=== PATIENT | male | born 1960 | race Caucasian/White ===

== ENCOUNTER 2017-11-25 23:12 | Inpatient (IN) | payer MEDICARE ==
[2017-11-26] MEDS ORDERED: Ketorolac Tromethamine 30 MG/ML VIAL ONE (02:15)
[2017-11-26] MEDS ORDERED: Ondansetron HCl/PF 4 MG/2 ML Vial IVP PRN (03:12)
[2017-11-26] MEDS ORDERED: Acetaminophen 650 MG Suppository PR PRN (03:12)
[2017-11-26 03:47] LABS: #Basophils 0.1 thou/uL (0.0-0.2); #Eosinphils 0.4 thou/uL (0.0-0.7); #Lymphocytes 3.4 thou/uL (1.20-3.40); #Monocytes 0.6 thou/uL (0.11-0.59); #Neutrophils 4.8 thou/uL (1.40-6.50); %Basophils 1.1 % (0.0-1.0); %Eosinophils 4.3 % (0.0-10.0); %Lymphocytes 36.8 % (21.0-51.0); %Neutrophils 51.8 % (42.0-75.0); Hemoglobin 12.3 g/dL (14.0-18.0); Mean Corpuscular Volume 96.7 fl (80.0-94.0); Mean Platelet Volume 9.1 fL (7.4-10.4); Platelet Count 157 thou/uL (130-400); Red Blood Cell (RBC) Count 4.12 mill/uL (4.70-6.10); White Blood Cell (WBC) Count 9.3 thou/uL (4.8-10.8)
[2017-11-26 04:06] LABS: Anion Gap 15 mmol/L (10-20); BUN (Urea Nitrogen) 17 mg/dL (8.4-25.7); Calc. Creatinine Clearance 0 mL/min (70-130); Calcium 8.9 mg/dL (7.8-10.44); Carbon Dioxide 19 mmol/L (22-29); Cardiac Risk 3.8 (Less than 4.5); Chloride 109 mmol/L (98-107); Cholesterol 134 mg/dl (< 200 Desired); Estimated GFR-MDRD Greater than 90; Glucose 90 mg/dL (70-105); HDL Cholesterol 35 mg/dL (>60 Neg Risk); LDL Cholesterol, Calculated 72 mg/dL; Magnesium 2.1 mg/dL (1.6-2.6); Sodium 139 mmol/L (136-145); Triglycerides 134 mg/dL (Less than 150)
--- NOTE | 2017-11-26 06:23 | HP ---
DATE OF ADMISSION: 11/26/2017 TIME OF SERVICE: 0200 hours. PRIMARY CARE PHYSICIAN: Souleymane Hines MD CHIEF COMPLAINT: Left-sided weakness. HISTORY OF PRESENT ILLNESS: Mr. Sherwood is a 57-year-old white male with known history of cerebral v ascular disease, status post large stroke in 2014, coronary artery disease, hypertension, hyperlipide lupis, anxiety/depression. The patient was transferred to our facility from the [facility] for stroke workup. The patient presented there after a 24 to 36 hour history of left-sided paresis. He states he could not move his left arm or leg, but now is able to move his left fingers. He has a chronic right-sided deficit after his previous stroke. He initially had right-sided weaknes s, but developed tremors and clonus to the right upper and lower extremities. Those have been relati vely stable. The patient also notes today that he cannot see out of the right half of his visual field of either o ne of his eyes and also has not been speaking normal since this morning. Nursing reports they did a bedside swallow evaluations while still in the emergency department, which he failed and I currently keep him n.p.o. The patient denies any fevers or chills, no cough, no lindsay st pain. No other areas of numbness or tingling or dysfunction. PAST MEDICAL HISTORY: 1. Coronary artery disease. 2. Hypertension. 3. Hyperlipidemia. 4. Cerebrovascular, status post stroke in 2014. 5. Anxiety/depression. PAST SURGICAL HISTORY: Includes: 1. Coronary artery bypass grafting. 2. PTCA with stent placement. 3. Right nephrectomy. HOME MEDICATIONS: 1. Lovastatin 20 mg p.o. at bedtime. 2. Lisinopril 20 mg p.o. daily. 3. Pepcid 20 mg daily. 4. Plavix 75 mg daily. 5. Escitalopram 20 mg daily, though he thinks he needs more. 6. Aspirin 325 mg daily. 7. Amlodipine 10 mg daily. ALLERGIES: ALEVE, HYDROCODONE and BACTRIM. FAMILY HISTORY: Negative for clotting or bleeding disorder, no immune dysfunction. SOCIAL HISTORY: Significant for past tobacco, but none currently. Cardiac is negative, habit x3. T he patient says his left about 6 months ago. He does have a son that lives nearby. REVIEW OF SYSTEMS: Ten point review of systems was performed and is negative for all systems except as stated as per HPI. PHYSICAL EXAMINATION: VITAL SIGNS: Temperature is 98.0, pulse 57, blood pressure 140/88, respiratory rate 20, satting 99% room air. GENERAL: He is awake. He is alert. He is oriented x3. He is a cachectic-looking white male who is disheveled looking. He looks like he is in no acute distress. HEENT: He is normocephalic, atraumatic. Pupils are equal, round, react to light bilaterally, mucous membranes are moist. He has uvula deviation looks to the left. There is some slight left-sided fac ial droop. His speech is garbled. He is speaking coherently, but the words are somewhat slurred. NECK: Supple. There is no lymphadenopathy, no JVD, no thyromegaly. He has normal carotid upstrokes . I do not appreciate bruit. LUNGS: Clear. Good air movement bilaterally. There is symmetrical chest excursion. There are no w heezes, no rales, no rhonchi. No prolonged expiratory phase. CARDIOVASCULAR: He has a normal S1, S2, no S3, S4. He is regular and with a normal rate. He has no audible murmurs. ABDOMEN: Soft, nontender, nondistended, no mass, no organomegaly. Normoactive bowel sounds. There is no rebound, rigidity, or guarding. EXTREMITIES: Show no cyanosis, no clubbing. He has a trace pedal edema. SKIN: Warm, moist warm perfusing no rashes or lesions. NEUROLOGIC: Cranial nerves II-XII grossly intact, though on second look, he does have a slight left- sided facial droop. He has uvula deviation in the right. He is dysarthric. The remainder of his cr anial nerves appears to be intact. He has no nuchal rigidity or neck muscle weakness. His left uppe r extremity is weak approximately 1/5 strength. His fingers are able to provide manager r d and opening at 2 to 3/5 strength. He is hyperflexing in both brachioradialis and triceps tendons and then biceps te ndon. He is basically hemiparetic to the left lower extremity. He cannot dorsiflex or plantarflex his toes. He has decreased sensation and does say numb and does not withdraw from pain. His patella r reflexes hyperreflexic. Right lower extremity shows a 4-5 beats of clonus with ankle jerk. He is able to lift his leg but gets almost nael hemiballismic with it and similarly for his right upper ext remity. He has a pretty profound 3 to 5 Hertz resting tremor to the right upper extremity. MUSCULOSKELETAL: Normal to inspection. Joints appear uninflamed. There is no palpable joint effusi ons. LABORATORY DATA: Sodium 140, potassium 4.0, chloride 109, bicarb 20, BUN 22, creatinine 1.03, glucos e 97, calcium 9.4. Liver function completely normal. CBC showed white count 10.4, hemoglobin 13.0, hematocrit 38.0, platelet count is 240,000. Biomarkers showed a CK-MB of 1.3, troponin I undetectabl e less than 0.010. Urinalysis is negative. Urine drug screen is positive for THC and benzos. The p atient did admit to using. INR 0.99 and TSH is 3.02. Chest x-ray, CT scan showed no infarct, no mas s shift and no bleeds. Chest x-ray showed no acute cardiopulmonary disease. ASSESSMENT AND PLAN: 1. Subacute stroke, ischemic. The patient has a right homonymous hemianopsia. He has a profound le ft-sided weakness. It is certainly new. He has chronic old right-sided findings. I suspect he had a left hemispheric stroke. We will get an MRI/MRA. We will use aspirin 300 mg rectally daily until speech therapy and sensory evaluate him. PT, OT and speech therapy consult has been ordered. We sarah l get fasting lipid profile in the morning. The patient at home was already on maximal therapy with Plavix, aspirin, lovastatin, though there is some room to increase that. We will ask Dr. Sedrick lowry h Neurology was special education curriculum specialist to see him today. 2. Coronary artery disease, no symptoms at present. 3. Hypertension. The patient is on lisinopril normally. He is also on amlodipine. We will use hyd ralazine 10 mg q.3 p.r.n. for systolic greater than 180. 4. Hyperlipidemia on lovastatin. Fasting lipid profile is pending. 5. History of cerebrovascular disease as above with anxiety/depression on citalopram, though the pat ient needs it any more. May increase once he is cleared to swallow.
[2017-11-26] MEDS ORDERED: Aspirin 300 MG Suppository PR SCH (09:00)
[2017-11-26] MEDS ORDERED: Enoxaparin Sodium 40 MG/0.4 ML SYRINGE ONE (09:20)
[2017-11-26] MEDS ORDERED: Famotidine/PF 20 mg/2ml Vial ONE (09:21)
--- NOTE | 2017-11-26 09:30 | MRI ---
BRAIN MRI WITHOUT CONTRAST: History: Right CVA. Left sided weakness. Right sided symptoms. Difficulty speaking. Comparison: 05-31-17 Technique: Brain MRI is performed without intravenous gadolinium administration. Multisequential, mul tiplanar images were performed. FINDINGS: No hemorrhage on the axial gradient echo sequence. No parenchymal mass effect or midline shift. There is stable malacic change in the left occipital lob e and right cerebellar hemisphere. Associated gliosis. Remainder of the cerebrum demonstrates preserv ation of cortical vaughn white matter differentiation. Single malacic change in the right midbrain. T2 and FLAIR white matter hyperintensity due to chronic small vessel ischemic change is noted. Central arterial flow voids are maintained. Mucosal disease of the sinuses is noted. Calvarium has normal marrow signal intensity. Midline brain parenchymal structures are unremarkable. IMPRESSION: 1. Absent restricted diffusion. No acute infarct. 2. Stable malacic and gliotic changes. POS: [facility]
--- NOTE | 2017-11-26 09:37 | MRI ---
NONCONTRAST ENHANCED ASA'CARSARMIUT OF ACEVES MRA: Date: 11/26/17 HISTORY: Left-sided weakness, hemoptysis. TECHNIQUE: Noncontrast enhanced MRA images obtained. FINDINGS: Old areas of stroke seen in the left occipital cortex, as well as in the right maico. The left vertebral artery is tiny and ends in the left posterior inferior cerebellar artery. The righ t vertebral artery is dominant. Normal flow is seen in the basilar artery. There is normal flow seen in the right and left posterior cerebral arteries. Flow is seen in the internal carotid artery with g ood flow seen in the JENA and MCA vessels. No evidence of aneurysms or vascular occlusion seen. IMPRESSION: Old left posterior cerebral artery stroke and right pontine strokes. No definite evidence of signific ant occlusive changes seen. The left vertebral artery ends in PICA and is tiny. POS: [facility]
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
[2017-11-26] MEDS: Enoxaparin Sodium 40 MG/0.4 ML SYRINGE SC SCH (16:28)
[2017-11-26] MEDS: Sodium Chloride 0.9% 1,000 ML IV SCH ×2 (17:25→17:26)
[2017-11-26] MEDS: Famotidine/PF 20 mg/2ml Vial SLOW IVP SCH ×2 (17:26→20:34)
[2017-11-26] MEDS: Lovastatin 20 MG TAB PO SCH (20:33)
[2017-11-26] MEDS: Clopidogrel Bisulfate 75 MG TAB PO SCH (20:33)
--- NOTE | 2017-11-26 20:41 | CON ---
NEUROLOGY CONSULTATION NOTE DATE OF CONSULTATION: 11/26/2017 CONSULTING PHYSICIAN: Hospitalist Service. IMPRESSION: 1. Psychosomatic weakness on the left. 2. Past history of a left occipital stroke and right cerebellar stroke. PLAN: The patient can be discharged at your discretion. HISTORY OF PRESENT ILLNESS: Mr. Sherwood is a 57-year-old man who reports that as of yesterday, he ab ruptly lost the use of his left arm and leg. His symptoms have persisted since yesterday. He report s a history of a prior stroke with a right homonomous field deficit and a tremor in the right hand. He reports he has been compliant with his aspirin, Plavix, and statin. He came into the emergency ro om today. He had an MRI of the brain done, which showed only chronic ischemic changes, but nothing a cute. MRA of the cerebral vessel was unremarkable. His lab work has been unremarkable as well. The patient does not complain of a headache, nausea, vomiting and difficulty speaking or swallowing. PAST MEDICAL HISTORY: CVA. ALLERGIES: SULFA, HYDROCODONE and ATORVASTATIN. SOCIAL HISTORY: Unknown. FAMILY HISTORY: Noncontributory. REVIEW OF SYSTEMS: Otherwise, negative. PHYSICAL EXAMINATION: VITAL SIGNS: Stable. He is afebrile. HEENT: Pupils are equal and reactive. Conjunctivae clear. Oropharynx is clear. NEUROLOGIC: He was alert and cooperative. His speech is fluent and clear. Cranial nerve exam showe d a subjective dense right homonomous hemianopsia. The remainder of his cranial nerve exam appeared unremarkable. There is no facial droop present. No dysarthria was present. Motor exam showed a sub jective trace amount of antigravity movement in the left arm and a little if any in the leg. The pat ient was distracted during testing of the right side and there was antigravity strength demonstrated in the left leg. The plantar response was downgoing on the right and upgoing on the left. Gait was not testable. There is a tremor present in the right hand on postural extension. SUMMARY: The patient has subjective weakness, albeit there is nothing affecting the cranial nerves a nd the weakness appears to have some malingering aspect to it. Given the negative MRI, I suspect it is primarily psychosomatic and will clear.
[2017-11-27] MEDS: Sodium Chloride 0.9% 1,000 ML IV SCH (06:03)
[2017-11-27] MEDS ORDERED: Mag-Al 1200 mg/1200 mg/30 ML UDCUP PO PRN (08:49)
[2017-11-27] MEDS ORDERED: Acetaminophen 325 MG TAB PO PRN (08:49)
[2017-11-27] MEDS ORDERED: Sodium Chloride 0.65% Nasal 44 ML BOT EA NARE PRN (08:49)
[2017-11-27] MEDS ORDERED: Loratadine 10 MG TAB PO PRN (08:49)
[2017-11-27] MEDS ORDERED: Temazepam 15 MG CAP PO PRN (08:49)
[2017-11-27] MEDS ORDERED: Loperamide HCl 2 MG CAP PO PRN (08:49)
[2017-11-27] MEDS ORDERED: Eucerin (Mineral Oil/Petrolatum,White) 30 gm Jar TOP PRN (08:49)
[2017-11-27] MEDS ORDERED: Ondansetron ODT 4 MG TAB PO PRN (08:49)
[2017-11-27] MEDS ORDERED: Diabetic Tussin 200 MG/10 ML UDCUP PO PRN (08:49)
[2017-11-27] MEDS ORDERED: Milk Of Magnesia 30 ML UDCUP PO PRN (08:49)
[2017-11-27] MEDS ORDERED: Artificial Tears 18 DROP/0.9 ML EA EYE PRN (08:49)
[2017-11-27] MEDS ORDERED: Chloraseptic Spray 180 ml Bottle PO PRN (08:49)
[2017-11-27] MEDS ORDERED: Senokot 8.6 MG TAB PO PRN (08:49)
[2017-11-27] MEDS ORDERED: hydrALAZINE 20 MG/ML VIAL SLOW IVP PRN (08:49)
[2017-11-27] MEDS ORDERED: FLU VACC QS2017-18 36 mo. & older 0.5 ML SYRINGE IM ONE (09:00)
[2017-11-27] MEDS ORDERED: Lisinopril 20 MG TAB PO SCH (09:00)
[2017-11-27] MEDS: Aspirin 325 MG TAB PO SCH (09:20)
[2017-11-27] MEDS: Amlodipine 10 MG TAB PO SCH (09:20)
[2017-11-27] MEDS: Famotidine 20 MG TAB PO SCH ×2 (09:20→21:53)
[2017-11-27] MEDS: Enoxaparin Sodium 40 MG/0.4 ML SYRINGE SC SCH (09:20)
[2017-11-27] MEDS: Citalopram 20 MG TAB PO SCH (09:20)
--- NOTE | 2017-11-27 11:14 | PDOC.PN ---
- Subjective Encounter Start Date: 11/27/17 Encounter Start Time: 07:00 -: old records requested/rev pt is weak, stroke team evaluating, no new problem per pt - Objective Resuscitation Status: Resuscitation Status FULL:Full Resuscitation MAR Reviewed: Yes Vital Signs & Weight: Vital Signs (12 hours) Temp Pulse Resp BP Pulse Ox 11/27/17 09:20 56 L 11/27/17 08:00 98.1 F 56 L 18 155/84 H 98 11/27/17 03:12 98 11/27/17 02:59 97.9 F 49 L 18 123/70 97 Weight Weight 176 lb 9.6 oz I&O: 11/26/17 11/27/17 11/28/17 06:59 06:59 06:59 Intake Total 1347 Output Total 550 Balance 797 Result Diagrams: 11/26/17 03:28 11/26/17 03:28 Radiology Reviewed by me: Yes (MRI brain and MRA) EKG Reviewed by me: Yes (nsr) Phys Exam - Physical Examination Constitutional: NAD HEENT: PERRLA, moist MMs, sclera anicteric Neck: no JVD, supple Respiratory: no wheezing, no rales, no rhonchi Cardiovascular: RRR, no significant murmur, no rub Gastrointestinal: soft, non-tender, no distention, positive bowel sounds Musculoskeletal: no edema, pulses present Neurological: non-focal, normal sensation, moves all 4 limbs Lymphatic: no nodes Psychiatric: normal affect, A&O x 3 Skin: no rash, normal turgor Dx/Plan (1) TIA (transient ischemic attack) Status: Acute (2) Anxiety and depression Code(s): F41.8 - OTHER SPECIFIED ANXIETY DISORDERS Status: Chronic (3) Dyslipidemia Code(s): E78.5 - HYPERLIPIDEMIA, UNSPECIFIED Status: Chronic (4) H/O: CVA (cerebrovascular accident) Code(s): Z86.73 - PRSNL HX OF TIA (TIA), AND CEREB INFRC W/O RESID DEFICITS Status: Chronic (5) Hypertension Code(s): I10 - ESSENTIAL (PRIMARY) HYPERTENSION Status: Chronic - Plan cont current plan of care, plan discussed w/ family, PT/OT, speech therapy * as per MRI brain, no new CVA, only old finding * will need stroke team evaluation today * medication reviewed as below * symptomatic treatment * pt is ok with lovastatin on discharge. * updated plan to daughter per pt request Review of Systems - Review of Systems ENT: negative: Ear Pain, Ear Discharge, Nose Pain, Nose Discharge, Nose Congestion, Mouth Pain, Mouth Swelling, Throat Pain, Throat Swelling, Other Respiratory: negative: Cough, Dry, Shortness of Breath, Hemoptysis, SOB with Excertion, Pleuritic Pain, Sputum, Wheezing Cardiovascular: negative: chest pain, palpitations, orthopnea, paroxysmal nocturnal dyspnea, edema, light headedness, other Gastrointestinal: negative: Nausea, Vomiting, Abdominal Pain, Diarrhea, Constipation, Melena, Hematochezia, Other Genitourinary: negative: Dysuria, Frequency, Incontinence, Hematuria, Retention , Other Musculoskeletal: negative: Neck Pain, Shoulder Pain, Arm Pain, Back Pain, Hand Pain, Leg Pain, Foot Pain, Other Skin: negative: Rash, Lesions, Eran, Bruising, Other - Medications/Allergies Allergies/Adverse Reactions: Allergies Allergy/AdvReac Type Severity Reaction Status Date / Time atorvastatin Allergy Verified 05/25/15 05:06 hydrocodone bitartrate Allergy Verified 05/25/15 05:06 [From [place]] sulfamethoxazole Allergy Verified 05/25/15 05:06 [From Bactrim] trimethoprim [From Bactrim] Allergy Verified 05/25/15 05:06 Medications: Current Medications Acetaminophen (Tylenol) 650 mg PO Q4H PRN PRN Reason: Headache/Fever or Mild Pain Al Hydroxide/Mg Hydroxide (Maalox) 15 ml PO Q4H PRN PRN Reason: Heartburn or Indigestion Amlodipine Besylate (Norvasc) 10 mg PO DAILY [facility] Last Admin: 11/27/17 09:20 Dose: 10 mg Artificial Tears (Tears Naturale) 0 drop EA EYE PRN PRN PRN Reason: Dry Eyes Aspirin (Aspirin) 325 mg PO DAILY [facility] Last Admin: 11/27/17 09:20 Dose: 325 mg Citalopram Hydrobromide (Celexa) 20 mg PO DAILY [facility] Last Admin: 11/27/17 09:20 Dose: 20 mg Clopidogrel Bisulfate (Plavix) 75 mg PO 2100 [facility] Last Admin: 11/26/17 20:33 Dose: 75 mg Enoxaparin Sodium (Lovenox) 40 mg SC 0900 [facility] Last Admin: 11/27/17 09:20 Dose: 40 mg Famotidine (Pepcid) 20 mg PO BID [facility] Last Admin: 11/27/17 09:20 Dose: 20 mg Guaifenesin (Robitussin Sf) 200 mg PO Q4H PRN PRN Reason: Cough Hydralazine HCl (Apresoline) 10 mg SLOW IVP Q4H PRN PRN Reason: Systolic BP > 180 Sodium Chloride (Normal Saline 0.9%) 1,000 mls @ 75 mls/hr IV .[id number] [facility] Last Admin: 11/27/17 06:03 Dose: Not Given Loperamide HCl (Imodium) 2 mg PO PRN PRN PRN Reason: Diarrhea/Loose Stools Loratadine (Claritin) 10 mg PO DAILYPRN PRN PRN Reason: Sinus Symptoms Lovastatin (Mevacor) 20 mg PO HS [facility] Last Admin: 11/26/17 20:33 Dose: 20 mg Magnesium Hydroxide (Milk Of Magnesium) 30 ml PO DAILYPRN PRN PRN Reason: Constipation Mineral Oil/White Petrolatum (Eucerin Cream) 0 gm TOP BIDPRN PRN PRN Reason: Dry Skin Ondansetron HCl (Zofran) 4 mg IVP Q6H PRN PRN Reason: Nausea/Vomiting Ondansetron HCl (Zofran Odt) 4 mg PO Q6H PRN PRN Reason: Nausea/Vomiting Phenol (Chloraseptic [place] 180 Ml Bot) 0 ml PO PRN PRN PRN Reason: Sore Throat Senna (Senokot) 2 tab PO HSPRN PRN PRN Reason: Constipation Sodium Chloride ([place] Nasal [place] 0.65%) 0 ml EA NARE QIDPRN PRN PRN Reason: Nasal Congestion Sodium Chloride (Flush - Normal Saline) 10 ml IVF Q12HR [facility] Last Admin: 11/27/17 09:20 Dose: Not Given Sodium Chloride (Flush - Normal Saline) 10 ml IVF PRN PRN PRN Reason: Saline Flush Temazepam (Restoril) 15 mg PO HSPRN PRN PRN Reason: Insomnia
[2017-11-27 12:43] VITALS: BMI 24.6
[2017-11-27] MEDS: Clopidogrel Bisulfate 75 MG TAB PO SCH (21:53)
[2017-11-27] MEDS: Lovastatin 20 MG TAB PO SCH (21:53)
[2017-11-28] MEDS: Amlodipine 10 MG TAB PO SCH (09:13)
[2017-11-28] MEDS: Famotidine 20 MG TAB PO SCH ×2 (09:13→21:07)
[2017-11-28] MEDS: Aspirin 325 MG TAB PO SCH (09:14)
[2017-11-28] MEDS: Enoxaparin Sodium 40 MG/0.4 ML SYRINGE SC SCH (09:14)
[2017-11-28] MEDS: Citalopram 20 MG TAB PO SCH (09:14)
--- NOTE | 2017-11-28 13:35 | PDOC.PN ---
- Subjective Encounter Start Date: 11/28/17 Encounter Start Time: 13:34 Subjective: feels much better. able to move left side better - Objective Resuscitation Status: Resuscitation Status FULL:Full Resuscitation MAR Reviewed: Yes Vital Signs & Weight: Vital Signs (12 hours) Temp Pulse Pulse Resp BP BP BP 11/28/17 11:50 97.5 F L 58 L 16 112/71 11/28/17 09:13 64 139/88 11/28/17 08:20 60 142/82 H 11/28/17 08:00 97.6 F 64 18 139/88 11/28/17 02:57 97.8 F 62 16 116/81 Pulse Ox 11/28/17 11:50 99 11/28/17 09:13 11/28/17 08:20 11/28/17 08:00 100 11/28/17 02:57 97 Weight Admit Weight 169 lb Weight 176 lb 9.6 oz I&O: 11/27/17 11/28/17 11/29/17 06:59 06:59 06:59 Intake Total 1347 750 Output Total 550 975 Balance 797 -225 Result Diagrams: 11/26/17 03:28 11/26/17 03:28 Phys Exam - Physical Examination Constitutional: NAD HEENT: PERRLA, moist MMs, sclera anicteric, oral pharynx no lesions Neck: no nodes, no JVD, supple, full ROM Respiratory: no wheezing, no rales, no rhonchi, clear to auscultation bilateral Cardiovascular: RRR, no significant murmur Gastrointestinal: soft, non-tender, no distention, positive bowel sounds Musculoskeletal: no edema, pulses present Neurological: normal sensation Left hemiparesis. strength 4/5 LUE and 3/5 LLE Psychiatric: normal affect, A&O x 3 Skin: no rash Dx/Plan (1) Left-sided weakness Code(s): R53.1 - WEAKNESS Status: Acute Comment: [place] Psychosomatic Vs TIA (2) Anxiety and depression Code(s): F41.8 - OTHER SPECIFIED ANXIETY DISORDERS Status: Chronic (3) Dyslipidemia Code(s): E78.5 - HYPERLIPIDEMIA, UNSPECIFIED Status: Chronic (4) H/O: CVA (cerebrovascular accident) Code(s): Z86.73 - PRSNL HX OF TIA (TIA), AND CEREB INFRC W/O RESID DEFICITS Status: Chronic (5) Hypertension Code(s): I10 - ESSENTIAL (PRIMARY) HYPERTENSION Status: Chronic - Plan PT/OT, protective services social worker, out of bed/ambulate, DVT proph w/SCDs cont ASA,statin ,[email or web address].cont PT -: awaiting placement -: hemodynmaically stable * . Review of Systems - Review of Systems Constitutional: negative: fever, chills, sweats, weakness, malaise, other Respiratory: negative: Cough, Dry, Shortness of Breath, Hemoptysis, SOB with Excertion, Pleuritic Pain, Sputum, Wheezing Cardiovascular: negative: chest pain, palpitations, orthopnea, paroxysmal nocturnal dyspnea, edema, light headedness, other Gastrointestinal: negative: Nausea, Vomiting, Abdominal Pain, Diarrhea, Constipation, Melena, Hematochezia, Other Genitourinary: negative: Dysuria, Frequency, Incontinence, Hematuria, Retention , Other Musculoskeletal: negative: Neck Pain, Shoulder Pain, Arm Pain, Back Pain, Hand Pain, Leg Pain, Foot Pain, Other Neurological: Weakness - Medications/Allergies Allergies/Adverse Reactions: Allergies Allergy/AdvReac Type Severity Reaction Status Date / Time atorvastatin Allergy Verified 05/25/15 05:06 hydrocodone bitartrate Allergy Verified 05/25/15 05:06 [From [place]] sulfamethoxazole Allergy Verified 05/25/15 05:06 [From Bactrim] trimethoprim [From Bactrim] Allergy Verified 05/25/15 05:06 Medications: Current Medications Acetaminophen (Tylenol) 650 mg PO Q4H PRN PRN Reason: Headache/Fever or Mild Pain Last Admin: 11/28/17 11:13 Dose: 650 mg Al Hydroxide/Mg Hydroxide (Maalox) 15 ml PO Q4H PRN PRN Reason: Heartburn or Indigestion Amlodipine Besylate (Norvasc) 10 mg PO DAILY [facility] Last Admin: 11/28/17 09:13 Dose: 10 mg Artificial Tears (Tears Naturale) 0 drop EA EYE PRN PRN PRN Reason: Dry Eyes Aspirin (Aspirin) 325 mg PO DAILY [facility] Last Admin: 11/28/17 09:14 Dose: 325 mg Citalopram Hydrobromide (Celexa) 20 mg PO DAILY [facility] Last Admin: 11/28/17 09:14 Dose: 20 mg Clopidogrel Bisulfate (Plavix) 75 mg PO 2100 [facility] Last Admin: 11/27/17 21:53 Dose: 75 mg Enoxaparin Sodium (Lovenox) 40 mg SC 0900 [facility] Last Admin: 11/28/17 09:14 Dose: 40 mg Famotidine (Pepcid) 20 mg PO BID [facility] Last Admin: 11/28/17 09:13 Dose: 20 mg Guaifenesin (Robitussin Sf) 200 mg PO Q4H PRN PRN Reason: Cough Hydralazine HCl (Apresoline) 10 mg SLOW IVP Q4H PRN PRN Reason: Systolic BP > 180 Loperamide HCl (Imodium) 2 mg PO PRN PRN PRN Reason: Diarrhea/Loose Stools Loratadine (Claritin) 10 mg PO DAILYPRN PRN PRN Reason: Sinus Symptoms Lovastatin (Mevacor) 20 mg PO HS [facility] Last Admin: 11/27/17 21:53 Dose: 20 mg Magnesium Hydroxide (Milk Of Magnesium) 30 ml PO DAILYPRN PRN PRN Reason: Constipation Mineral Oil/White Petrolatum (Eucerin Cream) 0 gm TOP BIDPRN PRN PRN Reason: Dry Skin Ondansetron HCl (Zofran) 4 mg IVP Q6H PRN PRN Reason: Nausea/Vomiting Ondansetron HCl (Zofran Odt) 4 mg PO Q6H PRN PRN Reason: Nausea/Vomiting Phenol (Chloraseptic [place] 180 Ml Bot) 0 ml PO PRN PRN PRN Reason: Sore Throat Senna (Senokot) 2 tab PO HSPRN PRN PRN Reason: Constipation Sodium Chloride ([place] Nasal [place] 0.65%) 0 ml EA NARE QIDPRN PRN PRN Reason: Nasal Congestion Sodium Chloride (Flush - Normal Saline) 10 ml IVF Q12HR [facility] Last Admin: 11/28/17 09:14 Dose: 10 ml Sodium Chloride (Flush - Normal Saline) 10 ml IVF PRN PRN PRN Reason: Saline Flush Temazepam (Restoril) 15 mg PO HSPRN PRN PRN Reason: Insomnia
[2017-11-28] MEDS: Clopidogrel Bisulfate 75 MG TAB PO SCH (21:07)
[2017-11-28] MEDS: Lovastatin 20 MG TAB PO SCH (21:07)
[2017-11-29] MEDS: Amlodipine 10 MG TAB PO SCH (08:44)
[2017-11-29] MEDS: Enoxaparin Sodium 40 MG/0.4 ML SYRINGE SC SCH (08:44)
[2017-11-29] MEDS: Famotidine 20 MG TAB PO SCH (08:44)
[2017-11-29] MEDS: Citalopram 20 MG TAB PO SCH (08:44)
[2017-11-29] MEDS: Aspirin 325 MG TAB PO SCH (08:44)
[2017-11-29 09:15] VITALS: TEMP 98.1
[2017-11-29 11:32] VITALS: BP 139/82
--- NOTE | 2017-11-29 18:13 | DIS ---
DATE OF ADMISSION: 11/26/2017 DATE OF DISCHARGE: 11/29/2017 CONDITION AT THE TIME OF DISCHARGE: Stable and improved. DISCHARGE DISPOSITION: [facility] for rehabilitation. DISCHARGE DIAGNOSES: 1. Left-sided weakness, possibly psychosomatic versus transient ischemic attack. 2. History of cerebrovascular accident. 3. Anxiety and depression. 4. Dyslipidemia. 5. Hypertension. DISCHARGE MEDICATIONS: Amlodipine 10 mg daily, aspirin 325 mg daily, Pepcid 20 mg daily, citalopram 20 mg daily, Plavix 75 mg daily, lovastatin 20 mg daily. PRIMARY CARE PHYSICIAN: Dr. Souleymane Hines. INHOUSE CONSULTATION: Neurology, Dr. Damion Dubose. PROCEDURES DURING THE HOSPITAL: Include, 1. MRA of the brain, which shows old left posterior cerebral artery stroke and right pontine strokes . 2. MRI of the brain which is negative for any acute infarction. HOSPITAL COURSE: Mr. Sherwood is a very pleasant 57-year-old male with past medical history of samayoa ry artery disease, hypertension, dyslipidemia and stroke in 2014, who presented with worsening left-s ided weakness to the emergency room. He reported that he has chronic right-sided deficit after his p revious stroke, but on presentation, he was not able to move his left side at all. He was found to b e dysarthric with a slight facial droop. He was otherwise hemodynamically stable. His initial phi p included normal cardiac enzymes and urine drug screen positive for THC and benzos. His CT scan did not show any acute infarction. He was admitted with a presumptive diagnosis of subacute stroke and MRI and MRV of the brain were ordered. He was continued on aspirin and Neurology was consulted. Ple ase see admission history and physical for further details. HOSPITAL COURSE: The patient was seen by Neurology and underwent MRA of the brain which did not show any evidence of acute infarction. Dr. Dubose saw the patient and reported that his weakness is mi ewhat subjective and rather appears to be more psychosomatic than an acute CVA or TIA. In his opinio n, the patient could benefit from rehabilitation or can be discharged home. Nevertheless, the patien t was continued on aspirin, Plavix, and started on statin as well. The rehabilitation option was patricia briggs and eventually test case developer was able to arrange rehabilitation for him at [facility]. He was seen and examined prior to discharge. He is still not able to use much of his left upper and lower extremity, but he reports that most of the symptoms are receding. He is able to move into a ce rtain extent, but he still keeps his left arm flexed. PHYSICAL EXAMINATION: This morning include, VITAL SIGNS: Temperature 98.1, pulse of 62, respirations 20, saturating 99% on room air, blood press ure 127/71. GENERAL: No acute distress, sitting up in bed, talking to the medical supervisor. CHEST: Clear to auscultation without any wheezing, rales or rhonchi. Rate and rhythm is regular wit hout any murmur, rubs or gallops. NEUROLOGICAL: Shows left upper and lower extremity weakness. Muscle strength is at least 3/5 bilate rally without any significant facial droop, aphasia or dysarthria. He does have a dense right homony mous hemianopia. He does have a right-sided resting tremor. LABORATORY DATA: His lipid panel is unremarkable. He is instructed to follow up with primary care physician after his rehab stay. Discharge plan was d iscussed with the patient who verbalized understanding.
--- NOTE | 2017-12-07 13:42 | EKG ---
Test Reason : Blood Pressure : / mmHG Vent. Rate : 058 BPM Atrial Rate : 058 BPM P-R Int : 126 ms QRS Dur : 080 ms QT Int : 450 ms P-R-T Axes : 067 022 037 degrees QTc Int : 441 ms Sinus bradycardia Septal infarct , age undetermined Abnormal ECG Confirmed by RUBEN PEREZ ([id number]), editorial intern ABAD NEGRETE ([id number]) on 12/07/2017 1:42:17 PM Referred By: Confirmed By:RUBEN PEREZ
== END 2017-11-29 12:30 | disposition swing bed (61) | DRG 882 ==
LOC: ERS 23:12 → ERHOLD 11-26 01:30 → 2SE 11-26 16:09
PROVIDERS: ADMIT Internal Medicine Infectious Disease; ATTEND Internal Medicine Infectious Disease
DX: F45.9 Somatoform disorder, unspecified (principal); G45.9 Transient cerebral ischemic attack, unspecified; G81.94 Hemiplegia, unspecified affecting left nondominant side; I69.351 Hemiplegia and hemiparesis following cerebral infarction affecting right dominant side; E78.5 Hyperlipidemia, unspecified; I25.10 Atherosclerotic heart disease of native coronary artery without angina pectoris; I10 Essential (primary) hypertension; F41.9 Anxiety disorder, unspecified; F32.9 Major depressive disorder, single episode, unspecified; Z95.1 Presence of aortocoronary bypass graft; Z95.5 Presence of coronary angioplasty implant and graft; Z90.5 Acquired absence of kidney; Z79.01 Long term (current) use of anticoagulants; Z79.82 Long term (current) use of aspirin; Z88.1 Allergy status to other antibiotic agents; Z88.5 Allergy status to narcotic agent; Z88.8 Allergy status to other drugs, medicaments and biological substances; Z87.891 Personal history of nicotine dependence; R47.81 Slurred speech; R29.810 Facial weakness; F12.10 Cannabis abuse, uncomplicated; F17.210 Nicotine dependence, cigarettes, uncomplicated
CPT/HCPCS: 36415; 70544; 70551; 80048; 80061; 83735; 85025; 93005; 94760; 96361; 96374; 99406; A4216; G8978-GP-CK; G8979-GP-CI; G8987-GO-CL; G8988-GO-CJ; G8996-GN-CH; G8997-GN-CH; J1650; J1885; S0028

== ENCOUNTER 2018-05-14 08:19 | Inpatient (IN) | payer MEDICARE ==
[2018-05-14] MEDS ORDERED: Labetalol HCl 100 MG/20 ML VIAL SLOW IVP PRN (12:17)
[2018-05-14] MEDS ORDERED: Acetaminophen 650 MG Suppository PR PRN (12:17)
[2018-05-14 13:48] VITALS: BMI 25.0
--- NOTE | 2018-05-14 14:21 | HP ---
PRIMARY CARE PROVIDER: Dr. Souleymane Hines. CHIEF COMPLAINT: Left-sided weakness. HISTORY OF PRESENT ILLNESS: Mr. Sherwood is a pleasant 57-year-old gentleman who was seen at [facility] on 05/14/2018 following transfer from [place]. He has a history of previous strokes and his speech is slightly slurred at baseline, according to his daughter. He woke up around 4:00 a.m. today. He was fine at that time. Around 6:15 a.m., he start ed having left-sided weakness. He also had slurred speech. He was taken to [place] [facility]. He was started on TPA. His symptoms improved on the way to [facility]. He reports that he does not have peripheral vision in the right eye and this is chronic. His speech has reportedly improved as well as left-sided weakness, as mentioned above. REVIEW OF SYSTEMS: All other systems reviewed and found to be negative. PAST MEDICAL HISTORY: Coronary artery disease, hypertension, dyslipidemia, cerebrovascular accident, anxiety, depression. PAST SURGICAL HISTORY: Coronary artery bypass graft, PCI with stent placement, right nephrectomy. ALLERGIES: ALEVE, HYDROCODONE and BACTRIM. FAMILY HISTORY: No family history of cerebrovascular accident. SOCIAL HISTORY: Patient denies tobacco use, alcohol use or recreational drug use. CURRENT MEDICATIONS: Plavix 75 mg daily, amlodipine 10 mg daily, aspirin 325 mg daily, famotidine 20 mg daily, Celexa 20 mg daily and lovastatin 10 mg daily. PHYSICAL EXAMINATION: GENERAL: On examination, Mr. Sherwood is awake and alert, not in acute distress. VITAL SIGNS: Blood pressure is 134/80, pulse 55, respiratory rate 15, and he is saturating 99% on ro om air. He is afebrile. EYES: No scleral icterus. No conjunctival pallor. ENT: Moist mucosal membranes, no oropharyngeal erythema or exudates. NECK: Supple, nontender, normal range of movement. Trachea is midline. RESPIRATORY: Accessory muscles of breathing are not active. Chest wall movements are symmetric bila terally. LUNGS: Clear to auscultation without wheeze, rhonchi or crepitations. CARDIOVASCULAR: S1 and S2 are heard, regular. Peripheral pulses are palpable. No carotid bruit, no pericardial rub. ABDOMEN: Soft, nontender, bowel sounds heard, no hepatomegaly, no splenomegaly. NEUROLOGIC: No vision in the right temporal ugarte. Speech is slurred. Otherwise, cranial nerves I I-XII are intact. Power is 5/5 in the right upper and lower extremities and 4+/5 in the left upper a nd lower extremities. Deep tendon reflexes are 2+, plantar reflex are downgoing bilaterally. MUSCULOSKELETAL: Power in the 4 extremities as described above. Partial amputation of the left fift h finger. LYMPHATIC: No cervical lymphadenopathy. SKIN: Multiple tattoos. No rashes or subcutaneous nodules. PSYCHIATRIC: Normal mood, normal affect, patient is oriented to person, place and time. IMAGING DATA AND LABORATORY DATA: Mr. Sherwood' labs and investigations were reviewed. I reviewed hi s electrocardiogram, which shows normal sinus rhythm, no ST changes to suggest an acute coronary synd armando. I also reviewed his noncontrast CT scan of the brain, which shows old infarcts. There is no b leed. He has normal white count, normocytic anemia with hemoglobin 13.3, normal platelet count, INR 1.0 and an unremarkable comprehensive metabolic profile. ASSESSMENT AND PLAN: Mr. Sherwood is a pleasant 57-year-old gentleman who was seen at [facility] on 05/14/2018. His problem list includes: 1. Ischemic cerebrovascular accident. Mr. Sherwood appears to have had an ischemic cerebrovascular a ccident. He has received TPA. He will be admitted to this hospital, to the CCU for further manageme nt. Neurology Service will be consulted. We will resume his aspirin and Plavix tomorrow. His TPA w as initiated at [place] at 07:32 hours today and was completed shortly after arrival at [facility] at 08:30 hours. 2. Hypertension: Monitor vital signs, titrate antihypertensives as needed. 3. Dyslipidemia: Continue statin. 4. Coronary artery disease: Appears to be stable. Many thanks for allowing me to participate in your patient's care. Please feel free to contact me wi th any questions or concerns. LEVEL OF RISK: High. LEVEL OF COMPLEXITY: High.
[2018-05-14] MEDS: Sodium Chloride 0.9% 1,000 ML IV SCH (15:28)
--- NOTE | 2018-05-14 15:48 | MRI ---
MRI OF THE BRAIN WITHOUT CONTRAST: Date: 05/14/18 INDICATION: History of CVA. COMPARISON: CT brain dated 05/14/18. FINDINGS: No definite restricted diffusion to suggest the presence of acute infarction. There is stable encepha lomalacia involving the left occipital lobe and right cerebellum. There is mild chronic small vessel white matter ischemic change. Septum pellucidum and third ventricle are midline. Appropriate flow-voi ds within the major intracranial vessels. There is prominent mucosal thickening within the maxillary sinuses and air fluid level seen within the left maxillary sinus. There is moderate mucosal thickenin g of sphenoid and ethmoid air cells. IMPRESSION: 1. No acute intracranial abnormality. 2. Stable chronic ischemic change as above. 3. Moderate paranasal sinus disease and air fluid level in left maxillary sinus suspicious for sinus itis. POS: LEONELA
--- NOTE | 2018-05-14 19:30 | RAD ---
TWO VIEWS OF THE LEFT HIP: 05/14/18 INDICATION: Status post fall with left hip pain. COMPARISON: None. IMPRESSION: No definite acute fracture or subluxation is evident. There is mild degenerative arthrosis of the lef t hip. POS: BH
[2018-05-14] MEDS: Famotidine 20 MG TAB PO SCH (21:20)
[2018-05-14] MEDS: Lovastatin 20 MG TAB PO SCH (21:20)
--- NOTE | 2018-05-14 23:44 | CON ---
DATE OF CONSULTATION: 05/14/2018 CONSULTING PHYSICIAN: Dr. Augustin from the Hospitalist group. REASON FOR CONSULTATION: Stroke. This consult encompassed 70 minutes of time. Of that time greater than 50% spent with the patient and/or on the patient unit in the hospital HISTORY OF PRESENT ILLNESS: This is a 57-year-old male who presented with left- sided weakness. He is felt to be having a stroke and received TPA. He subsequently had improvement in his left-sided weakness and says he is back to baseline. He tells me he has had 4 strokes in the past. He already had some left-sided weakness. PAST MEDICAL HISTORY: 1. Cerebrovascular accident. 2. Coronary artery disease. 3. Hypertension. 4. Hyperlipidemia. 5. Anxiety. 6. Depression. PAST SURGICAL HISTORY: 1. Coronary artery bypass grafting surgery. 2. PCI with stent placement. 3. Right nephrectomy. ALLERGIES: ALEVE, HYDROCODONE, BACTRIM. MEDICATIONS PRIOR TO ADMISSION: Plavix 75 mg daily, amlodipine 10 mg daily, aspirin 325 mg daily, famotidine 20 mg daily, Celexa 20 mg daily, lovastatin 10 mg daily. SOCIAL HISTORY: Former smoker, does not consume alcohol, does not use illicit drugs. REVIEW OF SYSTEMS: Twelve-point review of systems is otherwise negative. PHYSICAL EXAMINATION: VITAL SIGNS: Temperature 98.0, pulse 71, blood pressure 135/73, O2 sat 100%, respiratory rate 19. HEENT: Pupils react. Sclerae anicteric. Oropharynx clear. NECK: Without adenopathy, JVD, or bruits. LUNGS: Clear without wheezing or rhonchi. CARDIAC: S1, S2 regular, without murmur. ABDOMEN: Soft, nontender, nondistended. EXTREMITIES: No clubbing, cyanosis, edema. NEUROLOGIC: Patient has 4+/5 strength of his left arm and left leg, 5/5 right arm and right leg. He has good sensation throughout. Reflexes 2+/4 throughout. Cranial nerves II-XII are intact. LABORATORY DATA: White blood cell count 10.4, hematocrit 38.7, platelet count 339. INR 1.0. D-dimer 0.6. Sodium 140, potassium 3.9, chloride 108, CO2 is 22 , BUN 14, creatinine 0.9, glucose 81. Brain MRI report is pending. A CT of the head obtained in [place] demonstrated no acute findings. MRI demonstrates no acute intracranial abnormality. ASSESSMENT: 1. Possible cerebrovascular accident -- now status post TPA. 2. History of cerebrovascular disease. 3. History of hypertension. PLAN: Patient is being watched in the ICU tonight since he received TPA. Neurology has been consulted. I reviewed the orders, agreed with current care. Pulmonary is available for assistance prn. RADHA
[2018-05-15] MEDS: Sodium Chloride 0.9% 1,000 ML IV SCH (01:26)
--- NOTE | 2018-05-15 08:09 | CT ---
PRELIMINARY REPORT/[facility]/EMERGENTY AFTER-HOURS PROCEDURE CT Head Without Intravenous Contrast CLINICAL HISTORY: 57 years old, male; Signs and symptoms; Speech disturbance; Slurred speech; Patient HX: Poss. Stroke TECHNIQUE: Axial computed tomography images of the head/brain without intravenous contrast. All CT scans at this facility use at least one of these dose optimization techniques: automated exposure control; mA and/ or kV adjustment per patient size (includes targeted exams where dose is matched to clinical indication); or iterative reconstruction. COMPARISON: No relevant prior studies available. FINDINGS: No definite acute skull fracture. Moderate fluid/opacity in both ethmoid sinuses. Mild mucosal thickening/fluid in the maxillary and sphenoid sinuses. No acute intracranial hemorrhage or mass effect. Ventricle size is normal for age. Vascular calcifications noted in the right vertebral artery. Small old infarct in the right maico. Old infarcts in the occipital lobes, larger on the left. Old infarcts in the right cerebellar hemisphere. No definite acute infarct by CT. MRI could be more sensitive/specific for an acute infarct if clinically indicated. IMPRESSION: No acute intracranial bleed or mass effect. Old infarcts, details above. No definite acute infarct by CT, see above. Paranasal sinus findings as discussed above. Thank you for allowing us to participate in the care of your patient. Dictated and Authenticated by: Alex Almonte MD 05/14/2018 7:10 AM Central Time ([place] & [place]) FINAL REPORT HEAD CT WITHOUT CONTRAST: HISTORY: CVA. Followup exam. COMPARISON: 05/14/18. TECHNIQUE: A noncontrast head CT is performed from the skull base to the skull vertex. FINDINGS: This report is in agreement with the preliminary report by [facility]. Remote cerebral and cerebellar infar cts are redemonstrated. There has been no significant interval change. POS: LEONELA
[2018-05-15] MEDS: Citalopram 20 MG TAB PO SCH (08:21)
[2018-05-15] MEDS: Aspirin 325 mg Enteric Coated Tablet PO SCH (08:22)
[2018-05-15] MEDS: Amlodipine 10 MG TAB PO SCH (08:22)
[2018-05-15] MEDS: Clopidogrel Bisulfate 75 MG TAB PO SCH (08:22)
[2018-05-15] MEDS: Acetaminophen 325 MG TAB PO PRN (08:22)
--- NOTE | 2018-05-15 08:56 | PRG ---
DATE OF SERVICE: 05/15/2018 The patient is doing well, has no acute complaints. He has had no change in neuro status. PHYSICAL EXAMINATION: VITAL SIGNS: Temperature 98.0, pulse 60, blood pressure 130/86, O2 sat 100%. HEENT: Unremarkable except for head tremor. NECK: No JVD. LUNGS: Clear without wheezing. CARDIAC: S1 and S2 regular. ABDOMEN: Soft, nontender. EXTREMITIES: No edema. NEUROLOGIC: Unchanged from my exam documented yesterday. He still has slight left-sided weakness wh ich I think is probably stable. LABORATORY: He had no labs done today. ASSESSMENT: 1. Cerebrovascular accident with negative CT scan. 2. Status post t-PA. 3. History of hypertension. PLAN: The patient can be transferred to the stroke floor. There is no further pulmonary recommendat ions. Please recall if further assistance needed.
[2018-05-15 09:32] LABS: Cardiac Risk 4.7 (Less than 4.5)
--- NOTE | 2018-05-15 11:04 | CON ---
DATE OF CONSULTATION: 05/14/2018 REFERRING PHYSICIAN: Dr. Alex Augustin REASON FOR CONSULTATION: Left-sided weakness, status post t-PA. HISTORY OF PRESENT ILLNESS: Mr. Sherwood is a pleasant 57-year-old male who has been consul [facility] for evaluation of left-sided weakness. The patient reports that he has a history of stroke which has resulted in mild dysarthria at baseline. He woke up around 4:00 a.m. in the morning today, he w as fine at that time, around 6:15 a.m. he started having left-sided weakness. He also noticed worsen ing of his dysarthria. He was taken to the emergency room in [place] where he was evaluated for acu te stroke symptoms and he was given t-PA as he met all the criteria. He was then transferred to [place] [facility]. On arrival here, his symptoms had started improving. Currently, he denies an y headache, vision changes, diplopia, numbness, tingling, weakness, difficulty with swallowing or lig htheadedness or dizziness. PAST MEDICAL HISTORY: Significant for hypertension, dyslipidemia, history of stroke, coronary artery disease, anxiety and depression. PAST SURGICAL HISTORY: Significant for coronary artery bypass graft, cardiac stent placement, right nephrectomy. FAMILY HISTORY: Noncontributory. CURRENT MEDICATIONS: Please review MAR. ALLERGIES: Include ALEVE, HYDROCODONE and BACTRIM. SOCIAL HISTORY: Denies smoking, alcohol use, or illicit drug use. REVIEW OF SYSTEMS: As mentioned in the history of present illness, otherwise negative. PHYSICAL EXAMINATION: VITAL SIGNS: Blood pressure of 111/63, pulse of 64, temperature of 98.3, respirations of 16, O2 sats of 100% on room air. GENERAL: Well-developed, well-nourished male in no apparent distress. RESPIRATORY: Clear to auscultation bilaterally. CARDIOVASCULAR: Regular rate and rhythm. NEUROLOGIC: Mental status: The patient is awake, alert, oriented x3. Speech and language: Fluent speech. Cranial nerves: Pupils are 3 mm and reactive. Visual ugarte are intact. Extraocular muscl es are intact. No nystagmus. Face is symmetric. Tongue and uvula midline. Motor exam showed wyatt l tone and bulk with a 5/5 strength in both upper and lower extremities. Sensory: Sensation is inta ct and symmetric. Deep tendon reflexes 2+ reflexes in both upper and lower extremities. Babinski pu lses flexion bilaterally. Coordination intact to [id number] bilaterally. LABORATORY DATA: Labs are reviewed which included CBC, CMP, which is significant for hemoglobin 13.2 , hematocrit is 38.7 otherwise unremarkable. IMAGING STUDIES: MRI brain without contrast was reviewed, which showed no acute intracranial abnorma lity. IMPRESSION: 1. Acute onset left hemiparesis post-t-PA, now resolved. 2. Hypertension. 3. Diabetes. ASSESSMENT AND PLAN: Mr. Sherwood is a pleasant 57-year-old male with history of hypertensi on, diabetes, coronary artery disease, and prior stroke, presented with an acute onset of left-sided weakness. He is now status post IV t-PA. His MRI did not show an acute ischemic event, it is likely that he may have had a transient ischemic attack which resolved. At this time, I would recommend co ntinuing on Plavix 75 mg daily along with aspirin 81 mg daily for secondary stroke prevention. He wi ll be holding off on the antiplatelet and anticoagulation therapy for at least 24 hours post-t-PA. C zach PT, OT, Speech Therapy. Obtain echocardiogram and carotid Dopplers, continues supportive care . Continue his current medical management. Thank you for the consultation.
--- NOTE | 2018-05-15 12:22 | PDOC.PN ---
- Subjective Encounter Start Date: 05/15/18 Encounter Start Time: 09:00 Pt seen for followup re: TIA. Denies chest pain, shortness of breath, fevers or chills. - Objective MAR Reviewed: Yes Vital Signs & Weight: Vital Signs (12 hours) Temp Pulse Resp BP Pulse Ox 05/15/18 12:00 97.8 F 05/15/18 08:22 75 05/15/18 08:16 99 05/15/18 07:50 98.0 F 75 13 05/15/18 07:00 98.0 F 75 13 130/72 98 05/15/18 06:00 57 L 10 L 113/65 100 05/15/18 05:00 67 13 138/74 99 05/15/18 04:00 97.6 F 51 L 17 141/71 H 98 05/15/18 03:00 55 L 15 132/73 99 05/15/18 02:00 60 15 107/59 L 99 05/15/18 01:00 54 L 10 L 126/71 99 Weight Weight 185 lb 3.013 oz Most Recent Monitor Data Heart Rate from ECG 56 NIBP 139/90 NIBP BP-Mean 104 Respiration from ECG 18 SpO2 100 I&O: 05/14/18 05/15/18 05/16/18 06:59 06:59 06:59 Intake Total 1376 777 Output Total 1100 0 Balance 276 777 EKG Reviewed by me: Yes (Tele: NSR) Phys Exam - Physical Examination Constitutional: NAD HEENT: moist MMs, sclera anicteric, oral pharynx no lesions, 2+ tonsils Neck: no nodes, no JVD, supple, full ROM Respiratory: no wheezing, no rales, no rhonchi, clear to auscultation bilateral Cardiovascular: RRR, no rub S1, S2 Gastrointestinal: soft, non-tender, no distention, positive bowel sounds Neurological: moves all 4 limbs Psychiatric: normal affect, A&O x 3 Dx/Plan (1) TIA (transient ischemic attack) Code(s): G45.9 - TRANSIENT CEREBRAL ISCHEMIC ATTACK, UNSPECIFIED Status: Acute Comment: s/p tPA. No acute CVA on MRI. Continue aspirin, Plavix and statin. (2) Dyslipidemia Code(s): E78.5 - HYPERLIPIDEMIA, UNSPECIFIED Status: Chronic Comment: continue statin (3) Hypertension Code(s): I10 - ESSENTIAL (PRIMARY) HYPERTENSION Status: Chronic Comment: Monitor vital signs, titrate antihypertensives as needed (4) CAD (coronary artery disease) Code(s): I25.10 - ATHSCL HEART DISEASE OF [place] CORONARY ARTERY W/O ANG PCTRS Status: Chronic Comment: stable - Plan * . Review of Systems - Review of Systems Constitutional: negative: fever, chills, sweats, weakness, malaise Respiratory: negative: Cough, Shortness of Breath, SOB with Excertion, Pleuritic Pain, Wheezing Cardiovascular: negative: chest pain, palpitations, orthopnea, paroxysmal nocturnal dyspnea, edema, light headedness Gastrointestinal: negative: Nausea, Vomiting, Abdominal Pain, Diarrhea, Constipation, Melena, Hematochezia Skin: negative: Rash, Lesions, Eran, Bruising Neurological: negative: Weakness, Numbness, Incoordination, Change in Speech, Confusion, Seizures - Medications/Allergies Allergies/Adverse Reactions: Allergies Allergy/AdvReac Type Severity Reaction Status Date / Time atorvastatin Allergy Verified 05/14/18 10:50 hydrocodone bitartrate Allergy Verified 05/14/18 10:50 [From [place]] sulfamethoxazole Allergy Verified 05/14/18 10:50 [From Bactrim] trimethoprim [From Bactrim] Allergy Verified 05/14/18 10:50 Medications: Current Medications Acetaminophen (Tylenol) 650 mg PO Q4H PRN PRN Reason: Headache/Fever or Pain Last Admin: 05/15/18 08:22 Dose: 650 mg Acetaminophen (Tylenol) 650 mg CO Q4H PRN PRN Reason: Headache/Fever or Pain Amlodipine Besylate (Norvasc) 10 mg PO DAILY [facility] Last Admin: 05/15/18 08:22 Dose: 10 mg Aspirin (Ecotrin) 325 mg PO DAILY [facility] Last Admin: 05/15/18 08:22 Dose: 325 mg Citalopram Hydrobromide (Celexa) 40 mg PO DAILY [facility] Last Admin: 05/15/18 08:21 Dose: 40 mg Clopidogrel Bisulfate (Plavix) 75 mg PO DAILY [facility] Last Admin: 05/15/18 08:22 Dose: 75 mg Famotidine (Pepcid) 20 mg PO [facility] Last Admin: 05/14/18 21:20 Dose: 20 mg Labetalol HCl (Normodyne) 10 mg SLOW IVP Q2H PRN PRN Reason: SBP > 180 Lovastatin (Mevacor) 20 mg PO HS [facility] Last Admin: 05/14/18 21:20 Dose: 20 mg
[2018-05-15] MEDS: Lovastatin 20 MG TAB PO SCH (22:03)
[2018-05-15] MEDS: Famotidine 20 MG TAB PO SCH (22:04)
[2018-05-16] MEDS: Amlodipine 10 MG TAB PO SCH (10:08)
[2018-05-16] MEDS: Clopidogrel Bisulfate 75 MG TAB PO SCH (10:09)
[2018-05-16] MEDS: Aspirin 325 mg Enteric Coated Tablet PO SCH (10:09)
[2018-05-16] MEDS: Acetaminophen 325 MG TAB PO PRN (10:09)
[2018-05-16] MEDS: Citalopram 20 MG TAB PO SCH (10:09)
--- NOTE | 2018-05-16 11:00 | ULT ---
CAROTID ARTERIAL DOPPLER ULTRASOND: DATE: 05/16/18. COMPARISON: None. HISTORY: Transient ischemic attack. TECHNIQUE: Multiplanar, vaughn scale, sonographic imaging of the arterial structures of the neck obtained with col or flow and spectral analysis. FINDINGS: There is eccentric atherosclerotic plaque within the proximal ICA bilaterally as well as the distal C CA bilaterally. Antegrade blood flow and normal arterial waveforms are documented within the carotid and the vertebral system bilaterally. VESSEL PSV(CM/S) EDV(CM/S) Right CCA 108 24 Right ICA 110 35 Right ECA 125 19 Left CCA 104 17 Left ICA 102 35 Left ECA 101 15 ICA/CCA ratio is 1.0 bilaterally. IMPRESSION: No hemodynamically significant stenosis on the basis of sonographic velocity criteria. POS: LEONELA
[2018-05-16 15:56] VITALS: BP 120/72; TEMP 97.9
--- NOTE | 2018-05-16 23:54 | DIS ---
PRIMARY CARE PROVIDER: Souleymane Hines MD DATE OF ADMISSION: 05/14/2018 DATE OF DISCHARGE: 05/16/2018 DISCHARGE DIAGNOSIS: Transient ischemic attack. CONDITION OF PATIENT ON THE DAY OF DISCHARGE: Stable. I assessed Mr. Sherwood on the day of discharg e. He denies any chest pain or shortness of breath. Vital signs are stable. S1 and S2 are heard, r egular. Lungs are clear to auscultation bilaterally. CONSULTATIONS DURING THIS HOSPITALIZATION: Neurology, Dr. Enma Coon and Pulmonary Critical Care Med icine, Dr. Stefan Bob. HOSPITAL COURSE: Mr. Sherwood is a pleasant 57-year-old gentleman, who was admitted to [facility] on 05/14/2018 following TPA administration for suspected ischemic cerebrovascular accident. Please refer to my history and physical note dated 05/14/2018 for further details. MRI o f the brain on 05/14/2018 did not show any acute intracranial abnormality. He had stable chronic isc hemic changes and moderate paranasal sinus disease and air fluid level in the left maxillary sinus marx spicious for sinusitis. A CT scan of the brain done on 05/15/2018 did not show any acute skull fract ure. He had moderate fluids/opacity in both ethmoid sinuses, mild mucosal thickening/fluid in the ma xillary and sphenoid sinuses, no acute intracranial hemorrhage or mass effect and a small old infarct in the right maico. He also had old infarcts in the occipital lobes, larger on the left and old infa rcts in the right cerebellar hemisphere. There was no definite acute infarct by CT. He had echocard iogram, which showed left ventricular ejection fraction of 55% to 60%. Carotid Dopplers did not show any hemodynamically significant stenosis. He initially presented with left-sided weakness and slurred speech. His neurologic symptoms resolved following administration of TPA. He is being discharged to swing bed at [facility] for further management. DISCHARGE MEDICATIONS: Aspirin 325 mg daily, Plavix 75 mg daily, Celexa 40 mg daily, Norvasc 10 mg d aily, Pepcid 20 mg at bedtime and Lovastatin 20 mg at bedtime. During this hospitalization, he had triglycerides 153, cholesterol 151, LDL cholesterol 88, and HDL c holesterol 32. Many thanks for allowing me to participate in your patient's care. Please feel free to contact me wi th any questions or concerns. DISCHARGE DESTINATION: [facility] bed. TOTAL AMOUNT OF TIME SPENT COORDINATING THIS DISCHARGE: 32 minutes.
== END 2018-05-16 15:59 | disposition critical access hospital (66) | DRG 62 ==
LOC: ERS 08:19 → CCU 12:33 → 2SE 05-15 14:38
PROVIDERS: ADMIT Internal Medicine; ATTEND Internal Medicine
DX: G45.9 Transient cerebral ischemic attack, unspecified (principal); G81.94 Hemiplegia, unspecified affecting left nondominant side; E78.5 Hyperlipidemia, unspecified; I10 Essential (primary) hypertension; I25.10 Atherosclerotic heart disease of native coronary artery without angina pectoris; E11.9 Type 2 diabetes mellitus without complications; F41.9 Anxiety disorder, unspecified; F32.9 Major depressive disorder, single episode, unspecified; Z95.1 Presence of aortocoronary bypass graft; Z89.022 Acquired absence of left finger(s)
CPT/HCPCS: 36415; 70450; 70551; 80061; 93306; 93880; 99285; G8978-GP-CM; G8979-GP-CK; G8987-GO-CJ; G8988-GO-CH; G9162-GN-CI; G9163-GN-CH

== ENCOUNTER 2018-05-17 14:57 | Observation (INO) | payer MEDICARE ==
[2018-05-17 16:11] LABS: #Basophils 0.1 thou/uL (0.0-0.2); #Eosinphils 0.2 thou/uL (0.0-0.7); #Lymphocytes 2.7 thou/uL (1.20-3.40); #Monocytes 0.6 thou/uL (0.11-0.59); #Neutrophils 6.3 thou/uL (1.40-6.50); %Basophils 0.7 % (0.0-1.0); %Eosinophils 2.2 % (0.0-10.0); %Lymphocytes 27.4 % (21.0-51.0); %Monocytes 5.9 % (0.0-10.0); %Neutrophils 63.7 % (42.0-75.0); Hemoglobin 13.5 g/dL (14.0-18.0); Mean Corpuscular Hemoglobin 31.3 pg (27.0-31.0); Mean Corpuscular Volume 92.1 fL (78.0-98.0); Platelet Count 341 thou/uL (130-400); RBC Distribution Width 12.2 % (11.5-14.5); White Blood Cell (WBC) Count 9.9 thou/uL (4.8-10.8)
[2018-05-17 16:19] LABS: INR-International Normal Ratio 0.9; PTT 25.8 SEC (22.9-36.1); Prothrombin Time 12.3 SEC (12.0-14.7)
[2018-05-17] MEDS ORDERED: Acetaminophen 500 MG TAB ONE (16:29)
[2018-05-17] MEDS ORDERED: Metoclopramide HCl 10 MG TAB ONE (16:29)
[2018-05-17 16:36] LABS: CKMB 1.2 ng/mL (0-6.6); Troponin I Less than 0.010 ng/mL (< 0.028)
[2018-05-17 16:39] LABS: ALT (SGPT) 11 U/L (8-55); AST (SGOT) 15 U/L (5-34); Alkaline Phosphatase 78 U/L (40-150); Anion Gap 14 mmol/L (10-20); BUN (Urea Nitrogen) 18 mg/dL (8.4-25.7); Bilirubin, Total 0.5 mg/dL (0.2-1.2); Calc. Creatinine Clearance 0 mL/min (70-130); Calcium 9.3 mg/dL (7.8-10.44); Carbon Dioxide 23 mmol/L (22-29); Chloride 105 mmol/L (98-107); Estimated GFR-MDRD 75; Globulin 3.3 g/dL (2.4-3.5); Glucose 94 mg/dL (70-105); Potassium 4.3 mmol/L (3.5-5.1); Protein, Total 7.3 g/dL (6.0-8.3); Sodium 138 mmol/L (136-145)
[2018-05-17] MEDS ORDERED: Senokot 8.6 MG TAB PO PRN (16:59)
[2018-05-17] MEDS ORDERED: Ondansetron ODT 4 MG TAB PO PRN (16:59)
[2018-05-17] MEDS ORDERED: Acetaminophen 325 MG TAB PO PRN (16:59)
[2018-05-17 18:13] VITALS: BMI 26.9
[2018-05-17 20:33] LABS: Troponin I Less than 0.010 ng/mL (< 0.028)
[2018-05-17 21:38] LABS: Bilirubin Negative (Negative); Blood, Urine Negative (Negative); Clarity CLEAR (Clear); Glucose, Urine (Dipstick) Negative (Negative); Leukocyte Small (Negative); Nitrite Negative (Negative); Protein, Urine (Dipstick) Trace mg/dL (Neg-Trace)
[2018-05-17 21:40] LABS: Bacteria/HPF None Seen HPF (None Seen); Hyaline Casts/LPF 0-3 HYALINE CAST LPF (0-3 Hyaline); Pathc Cast-AUWi Flag 0.29 (0-2.49); Squamous Epithelial 0-3 HPF (0-3)
[2018-05-17 22:04] LABS: Amphetamine Not Detected (NotDetected); Barbiturates Screen Not Detected (NotDetected); Benzodiazepine Screen Not Detected (NotDetected); Cocaine Metabolite Screen Not Detected (NotDetected); Medtox Control Line Valid? VALID (VALID); Medtox Reader # READER 4; Methadone Not Detected (NotDetected); Methamphetamine Not Detected (NotDetected); Opiate Screen Not Detected (NotDetected); Oxycodone Screen Not Detected (NotDetected); Phencyclidine (PCP) Not Detected (NotDetected); THC/Cannabinoid Screen Detected (NotDetected); Tricyclic Screen Not Detected (NotDetected)
--- NOTE | 2018-05-18 09:02 | HP ---
CHIEF COMPLAINT: Syncope. HISTORY OF PRESENT ILLNESS: The patient is a 57-year-old male who was just discharged from the [facility] yesterday. The patient presented on 05/14/2018 with symptoms of a stroke at the [facility] where he received TPA and was subsequently transferred here. The patient had resolutio n of his symptoms and no residuals. He was seen by Neurology who felt that possibly the patient had a TIA as there was no substantial findings on his MRI to identify any acute problems. His CT scan al so failed to show any acute findings. He did have an echocardiogram and carotid Doppler, both of [facility] were essentially normal. Subsequently, the patient was discharged to the [facility] swing bed unit. The patient did wake up around 2:00 in the morning and not being sure of where he was. Today, the patient felt like he was somewhat confused and did not recognize his family members. He subsequently got up to work with physical therapy and had a syncopal episode. An ambulance was called and the pa manuel was subsequently transferred to our emergency department. En route, the patient had another sy ncopal episode lasting a matter of seconds apparently. The patient now reports that he still has the inability to recognize his family members. States he does not recognize his , but knows who she is because he was told that she is his . They indicate he also did not recognize his son. He s tates that he does not believe he would recognize the doctors that cared for him as recently as pilarte armida if he were able to see them. However, interestingly, he did remember the paramedics who helped to transport him today as he was one of the ones who transported him several days ago. The patient a lso reports significant left-sided headache which has been about 5/10. It is primarily around the le ft ear and somewhat upward from there. He only recently received Reglan and Tylenol. PAST MEDICAL HISTORY: Notable for significant coronary artery disease with several prior myocardial infarctions. He has hypertension, dyslipidemia, and 2 prior strokes prior to the most recent admissi on on the 05/14/2018. From his first stroke, he had TPA and had no residuals, but reports since his second stroke. He has a tremor in the right upper extremity, weakness in his left side, more pronoun reyes in his left leg and he also has some right peripheral vision deficits. PAST SURGICAL HISTORY: Coronary artery bypass graft, PCI with stents and right nephrectomy. FAMILY HISTORY: Negative for cerebrovascular disease. SOCIAL HISTORY: Patient denies tobacco, alcohol, or recreational drug use. MEDICATIONS: Plavix 75 mg every day, amlodipine 10 mg every day, lovastatin 20 mg at bedtime, famoti dine 20 mg at bedtime, aspirin 325 every day, Celexa 40 mg every day. ALLERGIES: ATORVASTATIN, HYDROCODONE, SULFAMETHOXAZOLE, TRIMETHOPRIM. PHYSICAL EXAMINATION: VITAL SIGNS: Pulse 86, BP 150/87, O2 sat 97%, temperature 98.1. GENERAL APPEARANCE: Age appropriate male. He is in no distress. He is awake, alert, pleasant, and cooperative. He is oriented. His and grandchild are in the room with him. HEENT: LUANN. He has no OP lesions, adequate airway. NECK: Supple and symmetric. CARDIOVASCULAR: Regular rate and rhythm without murmurs, gallops or rubs. LUNGS: Clear to auscultation bilaterally. ABDOMEN: Soft, nontender, nondistended, positive bowel sounds, no masses, no organomegaly. EXTREMITIES: Warm and dry without edema. NEUROLOGIC: Patient has something of an obvious almost spastic-type tremor with movement in his righ t upper extremity that tends to resolve with rest. His cranial nerves appear to be intact. He has s light decreased sensation in the left forehead compared to the right. He has decreased strength in t he left upper extremity which is 4+/5 and 4-/5 weakness in the left lower extremity. He does have de creased vision in his right lateral peripheral field, but extraocular movements are fully intact. LABORATORY DATA: Sodium 139, potassium 4.2, chloride 104, CO2 of 24, BUN is 19, creatinine 1.0, AST is 15, ALT is 13. BNP 51. Troponin less than 0.01 x2. Coags are normal. White count 9.9, hemoglob in 13.5, platelets 341. CT scan of the brain shows old infarct injury, but no acute findings and unc hanged from 2 days ago. ASSESSMENT AND PLAN: 1. Acute amnestic type symptoms. The patient had a syncopal episode and is reporting some associate d amnesia to recognition of his family. He has pretty good recall of everything that happened while in the hospital, but states he cannot recall whether his was there or not and states he would no t be able to recognize his doctors. Interestingly, he was able to recognize the van driver helper who brought him to the hospital several days ago as he came to get him again today. Etiology of this is unclear, but it is occurring in the setting of a recent stroke-like episode with the TPA. CT today does not reveal any evidence of bleeding. We will check a urinalysis and a sed rate, and ask Neurolo gy to come see him as well. 2. Syncopal episode. Again, this occurs in the setting of stroke that happened just a few days ago, although there were no findings on the MRI is suggesting to Neurology at the time that this was poss ibly more of transient ischemic attack type symptoms. The patient apparently had 2 episodes of synco pe today, one at the rehab facility and the other en route in the ambulance. We will keep him on tel emetry and repeat troponin. It is also possible the patient could be having some type of epileptifor m-type activity, although the indication is that the patient was back to his baseline, probably these episodes recurred. He just had a normal echocardiogram, carotid Doppler and a brain MRI within the last couple of days. We will not anticipate repeating a significant workup unless recommended by Lela patel. 3. History of coronary artery disease. We will continue with his usual home medications. 4. Hypertension. Continue home medications. 5. Hyperlipidemia. We will continue his usual medication regimen. 6. History of depression. The patient is on 40 mg of citalopram. Concerning that there may be some involvement of depression or conversion-type symptoms. We will again see what Neurology feels about that. In the meantime, we will keep him on his usual regimen.
--- NOTE | 2018-05-18 13:04 | MRI ---
BRAIN MRI WITHOUT IV CONTRAST: Date: 05/18/18 HISTORY: 57-year-old male with history of amnesia. History of multiple CVAs with prior TPA at the time of [facility] admission. COMPARISON: 05/14/18. FINDINGS: Stable sinus mucosal disease. Stable right cerebellar and left parietal infarcts with focal areas of encephalomalacia. No evidence for acute infarct. Normal expected flow-voids are present. Dominant rig ht vertebral. No focal mass or midline shift. No acute hemorrhage. IMPRESSION: Stable old right cerebellar and left occipital infarct changes. No evidence for acute infarct. Sinus mucosal disease. No new process or other significant change from 05/14/18. POS: LEONELA
--- NOTE | 2018-05-18 13:13 | CON ---
DATE OF CONSULTATION: 05/18/2018 NEUROLOGIC FOLLOWUP NOTE IMPRESSION: 1. New onset amnesia. 2. Past history of stroke with right homonymous hemianopsia and left-sided weakness. PLAN: MRI of the brain to determine whether this is an ischemic event. Mr. Sherwood is a 57-year-old gentleman who was recently discharged from the hospital after receiving TPA for stroke symptoms. He was at home and noted by his family to suddenly have a change in his men tation. He reportedly did not recognize his or anyone around him. He continued to have difficu lty recalling who he was and what his circumstances were. He was taken in [facility] an d had a CT scan of the brain done. No acute findings were noted. He was transferred here for [facility] evaluation. Some friends were with him today at the time of my assessment. They report that he di d not recognize him when he walked in. He seems to be better than he was yesterday according to the r assessment but has not returned to his baseline. PHYSICAL EXAMINATION: He was alert and cooperative. His speech is fluent and clear. He reports a r ight homonomous hemianopsia. No facial asymmetry was noted. He is quite just symmetric on the right side. There is a fix on the left side with arm roll testing. He has an irregular tremor, more on t he right than the left. He can walk with some assistance. Sensation was intact. IMAGING DATA: CT scan from yesterday shows a right cerebellar and left occipital lobe infarct. LABORATORY STUDIES: Show unremarkable CBC; coags; serum chemistry, urinalysis and toxicology was pos itive for cannabinoids. SUMMARY: This is a middle-aged gentleman who presents with acute amnesia, has a past history of prio r strokes. His exam shows chronic deficits. We will see if the MRI reveals any evidence of a new is chemic injury. Would continue antiplatelet therapy and a statin.
--- NOTE | 2018-05-18 13:46 | PDOC.PN ---
- Subjective Encounter Start Date: 05/18/18 Encounter Start Time: 13:44 Feels ok. Still has some difficulty recognizing family members. He is talking with this sister now. Did not originally recognize her, but feels like his recognition of her is improving as they talk. No other complaints. - Objective Vital Signs & Weight: Vital Signs (12 hours) Temp Pulse Resp BP Pulse Ox 05/18/18 12:00 98.6 F 80 20 155/66 H 100 05/18/18 08:45 98 F 57 L 20 05/18/18 08:00 98 F 57 L 20 122/77 98 05/18/18 03:51 97.4 F L 53 L 18 129/70 97 Result Diagrams: 05/17/18 16:04 05/17/18 16:04 Phys Exam - Physical Examination Constitutional: NAD Respiratory: no wheezing, no rales, no rhonchi Cardiovascular: RRR, no significant murmur, no rub Gastrointestinal: soft, non-tender, no distention Persistent spasticity of RUE with movement. He is alert and appropriate. Psychiatric: normal affect Dx/Plan (1) Amnesia Status: Acute (2) H/O: CVA (cerebrovascular accident) Code(s): Z86.73 - PRSNL HX OF TIA (TIA), AND CEREB INFRC W/O RESID DEFICITS Status: Chronic (3) Left-sided weakness Code(s): R53.1 - WEAKNESS Status: Acute Comment: [place] Psychosomatic Vs TIA (4) CAD (coronary artery disease) Code(s): I25.10 - ATHSCL HEART DISEASE OF [place] CORONARY ARTERY W/O ANG PCTRS Status: Chronic Comment: stable (5) Dyslipidemia Code(s): E78.5 - HYPERLIPIDEMIA, UNSPECIFIED Status: Chronic Comment: continue statin (6) Hypertension Code(s): I10 - ESSENTIAL (PRIMARY) HYPERTENSION Status: Chronic Comment: Monitor vital signs, titrate antihypertensives as needed (7) Syncope Code(s): R55 - SYNCOPE AND COLLAPSE Status: Acute Comment: Recently had carotid dopplers, echo and no has had a repeat MRI. No pathology that could account for the syncope. Nothing abnormal on tele. - Plan * Neuro eval'd patient this morning. He recommended a repeat MRI and to continue with the statin and antiplatelet therapy. MRI is unremarkable for new findings. * Spoke to patient's son privately with the patient's permission. Spoke with him again with his mother on the phone. They would like to consider a different facility for rehab as they a concerned that the original facility did not respond appropriately to the situation. Discussed with CM. Will consult PT.
[2018-05-19] MEDS ORDERED: Citalopram 20 MG TAB PO SCH (09:00)
[2018-05-19] MEDS ORDERED: Amlodipine 10 MG TAB PO SCH (09:00)
[2018-05-19] MEDS ORDERED: Aspirin 325 MG TAB PO SCH (09:00)
--- NOTE | 2018-05-19 12:55 | PDOC.PN ---
- Subjective Encounter Start Date: 05/19/18 Encounter Start Time: 09:15 Subjective: awake, oriented well -: is moving all extremities -: feels weak - Objective MAR Reviewed: Yes Vital Signs & Weight: Vital Signs (12 hours) Temp Pulse Pulse Pulse Pulse Pulse Resp 05/19/18 11:49 97.4 F L 70 20 05/19/18 10:43 70 66 82 65 05/19/18 10:10 73 70 05/19/18 09:33 57 L 05/19/18 09:30 97.6 F 57 L 16 05/19/18 07:38 97.6 F 57 L 16 05/19/18 04:00 97.6 F 61 16 BP BP BP BP BP Pulse Ox 05/19/18 11:49 133/70 96 05/19/18 10:43 136/80 133/75 140/87 142/72 H 05/19/18 10:10 127/72 136/80 05/19/18 09:33 05/19/18 09:30 05/19/18 07:38 132/74 98 05/19/18 04:00 113/62 99 I&O: 05/18/18 05/19/18 05/20/18 06:59 06:59 06:59 Intake Total 240 Balance 240 Result Diagrams: 05/17/18 16:04 05/17/18 16:04 Phys Exam - Physical Examination HEENT: PERRLA, moist MMs Neck: no JVD, supple Respiratory: no wheezing, no rales Cardiovascular: RRR, no significant murmur Gastrointestinal: soft, non-tender, positive bowel sounds Musculoskeletal: no edema, pulses present Neurological: moves all 4 limbs has unsteady gait with ataxia Psychiatric: normal affect awake, follows verbal stimuli, responds well to questions Dx/Plan (1) Amnesia Status: Acute (2) Anxiety and depression Code(s): F41.8 - OTHER SPECIFIED ANXIETY DISORDERS Status: Chronic (3) CAD (coronary artery disease) Code(s): I25.10 - ATHSCL HEART DISEASE OF [place] CORONARY ARTERY W/O ANG PCTRS Status: Chronic Qualifiers: Coronary Disease-Associated Artery/Lesion type: [place] artery [place] vs. transplanted heart: [place] heart Associated angina: without angina Qualified Code(s): I25.10 - Atherosclerotic heart disease of [place] coronary artery without angina pectoris Comment: stable (4) Dyslipidemia Code(s): E78.5 - HYPERLIPIDEMIA, UNSPECIFIED Status: Chronic Comment: continue statin (5) H/O: CVA (cerebrovascular accident) Code(s): Z86.73 - PRSNL HX OF TIA (TIA), AND CEREB INFRC W/O RESID DEFICITS Status: Chronic Comment: with left hemiparesis and right homonymous hemianopsia (6) Hypertension Code(s): I10 - ESSENTIAL (PRIMARY) HYPERTENSION Status: Chronic Qualifiers: Hypertension type: essential hypertension Qualified Code(s): I10 - Essential (primary) hypertension - Plan MRI did not show new infarct -: hemo/neuro stable -: needs help to amb, is unsteady -: on asp, plavix, lovastatin and norvasc -: may dc back to swing bed in [place] * . Review of Systems - Medications/Allergies Allergies/Adverse Reactions: Allergies Allergy/AdvReac Type Severity Reaction Status Date / Time atorvastatin Allergy Verified 05/16/18 17:07 hydrocodone bitartrate Allergy Verified 05/16/18 17:07 [From [place]] sulfamethoxazole Allergy Verified 05/16/18 17:07 [From Bactrim] trimethoprim [From Bactrim] Allergy Verified 05/16/18 17:07 Medications: Current Medications Acetaminophen (Tylenol) 650 mg PO Q4H PRN PRN Reason: Headache/Fever or Pain Last Admin: 05/19/18 09:36 Dose: 650 mg Amlodipine Besylate (Norvasc) 10 mg PO DAILY [facility] Last Admin: 05/19/18 09:33 Dose: 10 mg Aspirin (Aspirin) 325 mg PO DAILY [facility] Last Admin: 05/19/18 09:33 Dose: 325 mg Citalopram Hydrobromide (Celexa) 40 mg PO DAILY [facility] Last Admin: 05/19/18 09:34 Dose: 40 mg Clopidogrel Bisulfate (Plavix) 75 mg PO 2100 CARLO Famotidine (Pepcid) 20 mg PO HS CARLO Lovastatin (Mevacor) 20 mg PO HS CARLO Senna (Senokot) 2 tab PO HSPRN PRN PRN Reason: Constipation
[2018-05-19 15:22] VITALS: BP 122/71; TEMP 98.1
[2018-05-19] MEDS ORDERED: Famotidine 20 MG TAB PO SCH (21:00)
[2018-05-19] MEDS ORDERED: Clopidogrel Bisulfate 75 MG TAB PO SCH (21:00)
[2018-05-19] MEDS ORDERED: Lovastatin 20 MG TAB PO SCH (21:00)
--- NOTE | 2018-05-21 04:56 | DIS ---
DATE OF ADMISSION: 05/17/2018 DATE OF DISCHARGE: 05/19/2018 DISCHARGE DISPOSITION: To [facility]. PRIMARY DISCHARGE DIAGNOSES: Amnesia with recent history of cerebrovascular accident and left hemipa resis with right homonymous hemianopsia. SECONDARY DISCHARGE DIAGNOSES: Coronary artery disease, anxiety, depression, dyslipidemia, and hyper tension. PROCEDURES DONE DURING HOSPITALIZATION: The patient had a repeat MRI done on the , which showed stable, old right cerebellar and left occipital infarct. No evidence of acute infarct was seen. H&H 13 and 39, and platelet count 341. Sed rate of 38. Troponin x2 negative. Urine tox screen was pos itive for cannabinoids. DISCHARGE MEDICATIONS: The patient to continue aspirin 325 mg p.o. daily, Celexa 40 mg p.o. daily, N orvasc 10 mg p.o. daily, Plavix 75 mg p.o. daily, Pepcid 20 mg p.o. at bedtime, lovastatin 20 mg p.o. at bedtime. ALLERGIES: Allergic to ATORVASTATIN, HYDROCODONE, and SULFA. DISCHARGE PLAN: The patient to follow up with primary care physician in 1 week. INPATIENT CONSULTS: Dr. Dubose for Neurology. BRIEF COURSE DURING HOSPITALIZATION: The patient initially got admitted on the after he was sen t from [facility] due to complaints of memory issues and possibly passing out. The patient h ad sustained recent CVA and was discharged to swing bed 2 days back. In view of this, he has had a r epeat MRI done which did not reveal any acute infarct or bleed. He is participating with [facility]. The patient is hemodynamically stable and will be discharged back to swing bed in [place]. He is neurologically stable with no new deficits noted. Please see a [id number] documentation on [facility] for the day of discharge. Total of 35 minutes was spent on discharge plan.
== END 2018-05-19 20:41 ==
LOC: ERS 14:57 → 2SE 18:06
PROVIDERS: ADMIT Internal Medicine; ATTEND Internal Medicine
DX: R41.3 Other amnesia (principal); G81.94 Hemiplegia, unspecified affecting left nondominant side; Z86.73 Personal history of transient ischemic attack (TIA), and cerebral infarction without residual deficits; H53.461 Homonymous bilateral field defects, right side; I25.10 Atherosclerotic heart disease of native coronary artery without angina pectoris; E78.5 Hyperlipidemia, unspecified; I10 Essential (primary) hypertension; F41.8 Other specified anxiety disorders; Z88.8 Allergy status to other drugs, medicaments and biological substances; Z88.2 Allergy status to sulfonamides; Z79.82 Long term (current) use of aspirin; Z79.02 Long term (current) use of antithrombotics/antiplatelets; Z79.899 Other long term (current) drug therapy
CPT/HCPCS: 70551; 80053; 80306; 81001; 82553; 84484; 85025; 85610; 85652; 85730; 87086; 93005; 97116; 97139 ×3; 97530; 99285; G0378 ×3; G8978; G8979; G8987; G8988; 36415

== ENCOUNTER 2018-10-13 13:42 | Inpatient (IN) | payer MEDICARE ==
[2018-10-13] MEDS ORDERED: Labetalol HCl 100 MG/20 ML VIAL SLOW IVP PRN (15:17)
[2018-10-13] MEDS ORDERED: Communication Order-Pharmacy FS SCH (15:17)
[2018-10-13] MEDS ORDERED: niCARdipine HCl 25 MG in Sodium Chloride 0.9% 250 ML 240 ML IVPB PRN (15:17)
[2018-10-13] MEDS ORDERED: Acetaminophen 650 MG Suppository PR PRN (15:17)
[2018-10-13] MEDS ORDERED: Ondansetron PF 4 MG/2 ML Vial IVP PRN (15:17)
[2018-10-13 15:22] LABS: Troponin I Less than 0.010 ng/mL (< 0.028)
--- NOTE | 2018-10-13 17:09 | HP ---
[facility] after transferred from [facility]. HISTORY OF PRESENT ILLNESS: The patient presented to the emergency room this morning with a sudden loss of ability to use his left side and suddenly completely aphasic. It is pertinent that this patient has had multiple strokes in the past. As in the past 6 months, received tPA on one occasion for a stroke. Prior to this, he has had some difficulty moving both sides. His right side has had a very spastic paralysis. Left side is somewhat weak, and he had some difficulty talking, but he was actually active in the activities of daily living. He cared for himself and was mobile. Initially, it was thought that he was outside the window for tPA; however, between the time I was called and the time I showed up in the emergency room perhaps 10 minutes, the witness said that he had been normal at 10:30 this morning, tPA was started before I got here and he is currently receiving tPA. He is unable to give me any history. His sister is with him. I discussed resuscitation status with her. She said that as far as she knew, he was a full resuscitation. He is unable to answer me on that. She is going to find his children, as he has been many years to assist with his decision in the future. Currently, he is full resuscitation. PAST MEDICAL HISTORY: Includes multiple strokes in the past, one leaving a large right cerebellar infarct and a left parietal infarct. The cerebellar infarct is on the right and the parietal infarct is on the left on both the MRI and CAT scan, I was reviewing the MRI report and it is indeed incorrect. On 05/17/2018, he had a spell, for which he received tPA with resolution of his symptoms. He has a notable history of coronary artery disease with multiple myocardial infarctions, hypertension, and dyslipidemia. He had coronary artery bypass graft, PCI with stents, and right nephrectomy. FAMILY HISTORY: Negative for stroke. SOCIAL HISTORY: He quit smoking six months ago. No alcohol. ALLERGIES: TO LIPITOR, HYDROCODONE, SULFAMETHOXAZOLE, AND TRIMETHOPRIM. CURRENT MEDICATIONS: 1. Plavix 75 mg a day. 2. Amlodipine 10 mg a day. 3. Lovastatin 20 mg a day. 4. Famotidine 20 mg a day. 5. Aspirin 325 mg a day. 6. Celexa 40 mg a day. REVIEW OF SYSTEMS: Not obtainable. The patient is aphasic. PHYSICAL EXAMINATION: GENERAL: The patient is awake, and not able to answer questions. VITAL SIGNS: Blood pressure 147/90, pulse 60, respirations 16, and O2 saturation 100 on room air. HEAD, EYES, EARS, NOSE, AND THROAT: Revealed decreased vision on the right side , slightly disconjugate eye movements. Reactive pupils. Sclerae white. Tympanic membranes clear. Nose clear. NECK: Supple. No jugular venous distention, adenopathy, or thyromegaly. CHEST: Clear to auscultation and percussion. HEART: Regular rate and rhythm. First and second heart sounds are clear. There are no murmurs or gallops. ABDOMEN: Soft. Bowel sounds are normal. There is no hepatosplenomegaly. No mass. No rebound. No bruits. EXTREMITIES: Revealed no cyanosis, clubbing, or edema. Pulses; carotid, radial , femoral, and dorsalis pedis pulses intact. SKIN: Warm and dry with some minor ecchymoses on his arms. LYMPHATIC SURVEY: No tender or swollen lymph nodes in the axilla, inguinal, or cervical area. NEUROLOGIC: He appears to have a hemianopsia, right. Some mild disconjugate eye motions and difficult to assess. He is not good in following directions. Face , he seems symmetric. He has a significant spastic hemiplegia on the right. The deep tendon reflexes are increased on the right compared to the left. He has a nearly flaccid hemiplegia on the left with some minor motion at the left forearm that I can ascertain in the leg. His toes are neutral to plantar response. The tPA is in progress. DIAGNOSTIC DATA: EKG, I have not been able to find one. CAT scan reveals the old infarcts with nothing new I can see on my review. LABORATORY DATA: Laboratory done in the [facility]; white count 11.0, hemoglobin 15.0, and platelet count 289,000. INR 0.9 and PTT 28.8. Comprehensive metabolic profile: The only abnormality, CO2 is minimally low at 21. Blood sugars 114. Urine was clear. Toxicology revealed THC in his drug screen. ADMITTING DIAGNOSES: 1. New dense left flaccid hemiplegia. 2. New aphasia. 3. Apparent thrombotic cerebrovascular accident. 4. History of multiple cerebrovascular accidents. 5. Coronary artery disease with myocardial infarctions. 6. Hypertension. 7. Dyslipidemia. 8. History of tobacco abuse, recent THC usage. PLAN: As mentioned before, the tPA infusion is in progress. MRI has been ordered. A repeat CT scan will be done tomorrow. Prognosis for recovery is best-fair. He will be monitored in the ICU. Blood pressure will be monitored and controlled on the high side of normal. Neurology will be consulted. Physical Therapy and Speech Therapy will be consulted. Frequent neuro checks will be done. Vital signs will be done frequently. The patient will require close monitoring. Job ID: [id number] [facility]
[2018-10-13 19:53] VITALS: BMI 26.3
[2018-10-13] MEDS: Sodium Chloride 0.9% 1,000 ML IV SCH (20:53)
--- NOTE | 2018-10-14 00:13 | CON ---
DATE OF CONSULTATION: 10/13/2018 HISTORY OF PRESENT ILLNESS: The patient is a 58-year-old gentleman, who presented to the ER with motor deficit and left-sided weakness as per history obtained. His son is at the bedside and his sister is at the bedside. The patient has got significant right-sided jerky movements. As of yesterday, he was active walking. This morning, he developed left-sided weakness and aphasic symptoms. He is talking clearly. He is having some slurred speech, but he is awake and responsive. Apparently, a protocol was initiated. CT head showed no acute bleed. He was given tPA in the ER. This was explained to the sister and received tPA. He is now in the ICU. Apparently, his speech got better after the tPA. Movement in the right arm is unchanged. Left side, there is no change in his movement. PAST MEDICAL HISTORY: He has got extensive previous medical history pertinent for previous CVA, previous amnesia, previous right-sided paralysis, hypertension, hyperlipidemia, depression, and coronary artery disease. PAST SURGICAL HISTORY: Bypass surgery, previous stent, and previous nephrectomy. HOME MEDICATIONS: Include 1. Lovastatin 20. 2. Pepcid 20. 3. Plavix 75. 4. Celexa 40. 5. Aspirin. 6. Amlodipine 10. 7. He is now on Lovenox and nicardipine drip. ALLERGIES: NORCO AND BACTRIM. SOCIAL HISTORY: Oil fielder at one time. Tobacco ongoing, although he said he has cut back substantially. Alcohol, none. REVIEW OF SYSTEMS: Unremarkable. PHYSICAL EXAMINATION: GENERAL: Awake, alert, and responsive, extensive right-sided jerky movement, right upper and lower extremity, left-sided flaccid. VITAL SIGNS: Temperature 97, pulse 70, blood pressure 140/80, saturating at room air. CHEST: No wheezing or crackles. CARDIAC: Normal S1 and S2. No gallops. ABDOMEN: No masses. LABORATORY DATA: Creatinine 1.23. Otherwise, white count 11,[address] angio of the brain done. noted. IMPRESSION: 1. Acute right-sided cerebrovascular accident with left-sided hemiparesis. 2. Previous right-sided stroke with jerky movements. 3. Hypertension. 4. Tobacco abuse. 5. Coronary artery disease. PLAN: Continue observation in the ICU. Repeat CT and MRI in the morning. Awaiting input from Neurology. This is an ICU 45-minute critical time. We will follow. He is a full code. Job ID: [id number]
[2018-10-14 05:44] LABS: #Eosinphils 0.4 thou/uL (0.0-0.7); #Lymphocytes 3.5 thou/uL (1.20-3.40); #Monocytes 0.7 thou/uL (0.11-0.59); #Neutrophils 4.4 thou/uL (1.40-6.50); %Basophils 0.5 % (0.0-1.0); %Eosinophils 4.5 % (0.0-10.0); %Lymphocytes 38.8 % (21.0-51.0); %Monocytes 7.5 % (0.0-10.0); %Neutrophils 48.7 % (42.0-75.0); Hemoglobin 13.5 g/dL (14.0-18.0); Mean Corpuscular HGB CONC 34.4 g/dL (32.0-36.0); Mean Corpuscular Hemoglobin 31.4 pg (27.0-31.0); Mean Corpuscular Volume 91.4 fL (78.0-98.0); Mean Platelet Volume 9.4 fL (7.4-10.4); Platelet Count 208 thou/uL (130-400); RBC Distribution Width 12.5 % (11.5-14.5); Red Blood Cell (RBC) Count 4.29 mill/uL (4.70-6.10); White Blood Cell (WBC) Count 8.9 thou/uL (4.8-10.8)
[2018-10-14] MEDS: Sodium Chloride 0.9% 1,000 ML IV SCH ×2 (06:10→07:12)
--- NOTE | 2018-10-14 08:08 | CT ---
PRELIMINARY REPORT/[facility]/EMERGENTY AFTER-HOURS PROCEDURE CT Head Without Contrast EXAM DATE/TIME: 10/14/2018 5:31 AM CLINICAL HISTORY: 58 years old, male; Signs and symptoms; Altered mental status/memory loss; Patient HX: AMS multiple s eizures. TECHNIQUE: Axial computed tomography images of the head/brain without contrast. COMPARISON: No relevant prior studies available. FINDINGS: Brain: Encephalomalacia in the right cerebellum and left occipital region. Ventricles: Normal. No ventriculomegaly. Bones/joints: Normal. No acute fracture. Sinuses: Mild mucoperiosteal thickening of the paranasal sinuses. Mastoid air cells: Normal as visualized. No mastoid effusion. Soft tissues: Normal. IMPRESSION: Encephalomalacia in the right cerebellum and left occipital region but no evidence of acute intracran ial pathology. Thank you for allowing us to participate in the care of your patient. Dictated and Authenticated by: Meghann Landa MD 10/14/2018 6:08 AM Central Time ([place] & [place]) FINAL REPORT CT HEAD NONCONTRAST PERFORMED ON AN EMERGENCY BASIS: Date: 10/14/18 Time: 0532 hours HISTORY: Seizures. Altered mental status. COMPARISON: 10/13/18. FINDINGS: Findings agree with the preliminary report by Ana Cristina. Encephalomalacia and other chronic-type findings are stable. POS: [facility]
--- NOTE | 2018-10-14 09:05 | PDOC.PN ---
- Subjective Encounter Start Date: 10/14/18 Encounter Start Time: 09:04 Subjective: speech improved, some movement on L - Objective Resuscitation Status - Order Detail: 10/13/18 15:05 Resuscitation Status Routine Resuscitation Status: FULL: Full Resuscitation MAR Reviewed: Yes Vital Signs & Weight: Vital Signs (12 hours) Temp Pulse Ox 10/14/18 07:40 99 10/14/18 07:00 97.9 F 10/14/18 04:00 97.5 F L 10/14/18 00:00 98.4 F Weight Weight 194 lb 3.636 oz Most Recent Monitor Data Heart Rate from ECG 49 NIBP 130/82 NIBP BP-Mean 98 Respiration from ECG 15 SpO2 100 I&O: 10/13/18 10/14/18 10/15/18 06:59 06:59 06:59 Intake Total 811 Output Total 380 55 Balance 431 -55 Result Diagrams: 10/14/18 05:00 Additional Labs: Accuchecks 10/13/18 14:52 POC Glucose 120 H Phys Exam - Physical Examination Neck: no JVD Respiratory: clear to auscultation bilateral Cardiovascular: RRR, no significant murmur Gastrointestinal: soft, positive bowel sounds Musculoskeletal: no edema R spastic hemiplegia, 10% strength on L Dx/Plan (1) Acute CVA (cerebrovascular accident) Code(s): I63.9 - CEREBRAL INFARCTION, UNSPECIFIED Status: Acute (2) Hemiplegia of left nondominant side due to infarction of brain Code(s): I63.9 - CEREBRAL INFARCTION, UNSPECIFIED; G81.94 - HEMIPLEGIA, UNSPECIFIED AFFECTING LEFT NONDOMINANT SIDE Status: Acute (3) CAD (coronary artery disease) Code(s): I25.10 - ATHSCL HEART DISEASE OF [place] CORONARY ARTERY W/O ANG PCTRS Status: Chronic Qualifiers: Coronary Disease-Associated Artery/Lesion type: [place] artery [place] vs. transplanted heart: [place] heart Associated angina: without angina Qualified Code(s): I25.10 - Atherosclerotic heart disease of [place] coronary artery without angina pectoris Comment: stable (4) Dyslipidemia Code(s): E78.5 - HYPERLIPIDEMIA, UNSPECIFIED Status: Chronic Comment: continue statin (5) Hypertension Code(s): I10 - ESSENTIAL (PRIMARY) HYPERTENSION Status: Chronic Qualifiers: Hypertension type: essential hypertension Qualified Code(s): I10 - Essential (primary) hypertension - Plan Post TPA -: FU CT brain- no acute findings -: MRI pending will FU * .
--- NOTE | 2018-10-14 10:19 | PRG ---
DATE OF SERVICE: 10/14/2018 SUBJECTIVE: The patient is awake and alert. He is able to talk without much difficulty. Most notably, he has a tremor on his right side, but is significantly weak on his left side. OBJECTIVE: VITAL SIGNS: On exam, his temperature is 97.5, pulse 65, blood pressure 149/97, O2 saturation 100%, and respiratory rate 23. HEENT: Otherwise unremarkable. NECK: No JVD. No carotid bruits. LUNGS: Clear. CARDIAC: S1 and S2, regular. ABDOMEN: Soft. EXTREMITIES: No edema. LABORATORY DATA: White blood cell count 8.9, hematocrit 39.2, and platelet count 208. No chemistry was done today. ASSESSMENT: Status post cerebrovascular accident, requiring tPA. CT indicates he has a high-grade stenosis at the origin of left internal carotid artery. He also has atherosclerotic disease at the distal right vertebral artery and the proximal basilar artery. RECOMMENDATIONS: He can go to the stroke unit at any time. Neurology needs to see him and give his recommendations regarding anticoagulant therapy and when that can be started. The patient needs to undergo stroke rehab. Speech Therapy needs to be involved to see if he will clear for swallowing. Job ID: [id number]
--- NOTE | 2018-10-14 11:32 | MRI ---
BRAIN MRI WITHOUT CONTRAST: Date: 10-14-18 Comparison: 05-18-18 History: Parkinson's disease. Stroke. Altered mental status. Technique: Multiplanar, multisequence MRI images were obtained of the brain without contrast. FINDINGS: The axial gradient echo imaging is limited by motion artifact and demonstrates no definite evidence f or intracranial hemorrhage. The imaged paranasal sinuses and mastoid air cells demonstrates scattered mild mucosal thickening inv olving the ventral aspect of the ethmoid air cells, right greater than left. There is encephalomalacia within the right cerebellar hemisphere and the left occipital lobe, consist ent with areas of prior infarction. Prior focus of infarction noted within the [place] to the right of m idline. No acute infarction is apparent on the diffusion weighted imaging. No midline shift of mass effect is evident. The regional bone marrow signal intensity appears grossly unremarkable. IMPRESSION: Chronic findings as detailed above. No evidence for acute infarction. POS: [facility]
[2018-10-14] MEDS: Acetaminophen 325 MG TAB PO PRN ×2 (12:21→21:30)
--- NOTE | 2018-10-14 14:51 | PDOC.EVN ---
Event Note - Event Note Event Note: MRI no acure intracranial changes- poss seizure disorder with todds hemiparaysis
[2018-10-14 15:32] LABS: Chloride 109 mmol/L (98-107); Potassium 3.8 mmol/L (3.5-5.1); Sodium 139 mmol/L (136-145)
[2018-10-14 15:33] LABS: Calcium 8.8 mg/dL (7.8-10.44); Glucose 105 mg/dL (70-105)
[2018-10-14 15:34] LABS: Triglycerides 251 mg/dL (Less than 150)
[2018-10-14 15:35] LABS: Anion Gap 7 mmol/L (10-20); Carbon Dioxide 27 mmol/L (22-29)
[2018-10-14 15:37] LABS: Calc. Creatinine Clearance 98 mL/min (70-130); Estimated GFR-MDRD 76
[2018-10-14 15:38] LABS: BUN (Urea Nitrogen) 16 mg/dL (8.4-25.7)
[2018-10-14 15:39] LABS: Cardiac Risk 7.7 (Less than 4.5); Cholesterol 207 mg/dl (< 200 Desired); HDL Cholesterol 27 mg/dL (>60 Neg Risk); LDL Cholesterol, Calculated 130 mg/dL
[2018-10-14] MEDS ORDERED: Aspirin 325 MG TAB PO SCH (16:00)
[2018-10-14] MEDS ORDERED: Aspirin 300 MG Suppository PR SCH (21:00)
[2018-10-14] MEDS: Enoxaparin Sodium 40 MG/0.4 ML SYRINGE SC SCH (21:31)
[2018-10-14] MEDS: Famotidine 20 MG TAB PO SCH (21:32)
[2018-10-14] MEDS: Clopidogrel Bisulfate 75 MG TAB PO SCH (21:32)
[2018-10-15] MEDS: Sodium Chloride 0.9% 1,000 ML IV SCH ×2 (02:28→12:39)
[2018-10-15 06:06] LABS: #Basophils 0.1 thou/uL (0.0-0.2); #Eosinphils 0.4 thou/uL (0.0-0.7); #Lymphocytes 3.2 thou/uL (1.20-3.40); #Monocytes 0.6 thou/uL (0.11-0.59); #Neutrophils 5.2 thou/uL (1.40-6.50); %Basophils 0.9 % (0.0-1.0); %Lymphocytes 34.1 % (21.0-51.0); Hemoglobin 13.4 g/dL (14.0-18.0); Mean Corpuscular HGB CONC 33.2 g/dL (32.0-36.0); Mean Corpuscular Volume 93.4 fL (78.0-98.0); Mean Platelet Volume 8.2 fL (7.4-10.4); Platelet Count 249 thou/uL (130-400); RBC Distribution Width 12.4 % (11.5-14.5); Red Blood Cell (RBC) Count 4.31 mill/uL (4.70-6.10); White Blood Cell (WBC) Count 9.4 thou/uL (4.8-10.8)
[2018-10-15 06:20] LABS: Anion Gap 11 mmol/L (10-20); BUN (Urea Nitrogen) 13 mg/dL (8.4-25.7); Calc. Creatinine Clearance 110 mL/min (70-130); Calcium 8.6 mg/dL (7.8-10.44); Carbon Dioxide 21 mmol/L (22-29); Chloride 109 mmol/L (98-107); Estimated GFR-MDRD 86; Glucose 89 mg/dL (70-105); Sodium 137 mmol/L (136-145)
[2018-10-15] MEDS ORDERED: Aspirin 325 MG TAB PO SCH ×2 (09:00)
[2018-10-15] MEDS: Amlodipine 10 MG TAB PO SCH (09:35)
--- NOTE | 2018-10-15 11:23 | PDOC.PN ---
- Subjective Encounter Start Date: 10/15/18 Encounter Start Time: 11:22 Subjective: cont to improve in R sided activity - Objective Resuscitation Status - Order Detail: 10/13/18 15:05 Resuscitation Status Routine Resuscitation Status: FULL: Full Resuscitation MAR Reviewed: Yes Vital Signs & Weight: Vital Signs (12 hours) Temp Pulse Resp BP Pulse Ox 10/15/18 09:35 75 10/15/18 08:00 97.9 F 75 14 133/75 96 10/15/18 04:00 97.6 F 66 18 118/73 97 10/15/18 00:00 97.7 F 71 18 127/73 97 Weight Admit Weight 194 lb Weight 194 lb 3.636 oz Most Recent Monitor Data Heart Rate from ECG 77 NIBP 141/91 NIBP BP-Mean 107 Respiration from ECG 30 SpO2 96 I&O: 10/14/18 10/15/18 10/16/18 06:59 06:59 06:59 Intake Total 811 2171 760 Output Total 380 2360 1700 Balance 998 -056 -560 Result Diagrams: 10/15/18 05:30 10/15/18 05:30 Phys Exam - Physical Examination Neck: no nodes, no JVD Respiratory: clear to auscultation bilateral Cardiovascular: RRR, no significant murmur Gastrointestinal: soft, positive bowel sounds Musculoskeletal: no edema severe spasticity on R, stregth on L near normal Dx/Plan (1) Acute CVA (cerebrovascular accident) Code(s): I63.9 - CEREBRAL INFARCTION, UNSPECIFIED Status: Ruled-out (2) Hemiplegia of left nondominant side due to infarction of brain Code(s): I63.9 - CEREBRAL INFARCTION, UNSPECIFIED; G81.94 - HEMIPLEGIA, UNSPECIFIED AFFECTING LEFT NONDOMINANT SIDE Status: Acute (3) CAD (coronary artery disease) Code(s): I25.10 - ATHSCL HEART DISEASE OF [place] CORONARY ARTERY W/O ANG PCTRS Status: Chronic Qualifiers: Coronary Disease-Associated Artery/Lesion type: [place] artery [place] vs. transplanted heart: [place] heart Associated angina: without angina Qualified Code(s): I25.10 - Atherosclerotic heart disease of [place] coronary artery without angina pectoris Comment: stable (4) Dyslipidemia Code(s): E78.5 - HYPERLIPIDEMIA, UNSPECIFIED Status: Chronic Comment: continue statin (5) Hypertension Code(s): I10 - ESSENTIAL (PRIMARY) HYPERTENSION Status: Chronic Qualifiers: Hypertension type: essential hypertension Qualified Code(s): I10 - Essential (primary) hypertension - Plan EEG pending -: cont PT/OT -: CM consult -: REHAB screen -: cont current meds * .
--- NOTE | 2018-10-15 14:28 | EEG ---
Referring Physician: Avinash YI EEG # [id number] TEST TYPE: ROUTINE PORTABLE INPATIENT REPORT: AN EEG USING THE INTERNATIONAL TEN-TWENTY SYSTEM OF ELECTRODE PLACEMENT WAS PERFORMED. The waking background is a 10 hertz alpha frequency. The patient remained awake throughout the study. Photic stimulation was unremarkable. There is quite a bit of EMG and movement artifact present. No epileptiform features were present. IMPRESSION: THIS IS A NORMAL AWAKE technical support representative: [employer]: CARLOS A.ADAM GARCIA
[2018-10-15] MEDS: Famotidine 20 MG TAB PO SCH (21:17)
[2018-10-15] MEDS: Enoxaparin Sodium 40 MG/0.4 ML SYRINGE SC SCH (21:17)
[2018-10-15] MEDS: Clopidogrel Bisulfate 75 MG TAB PO SCH (21:17)
[2018-10-16 06:05] LABS: #Basophils 0.1 thou/uL (0.0-0.2); #Eosinphils 0.4 thou/uL (0.0-0.7); #Lymphocytes 2.5 thou/uL (1.20-3.40); #Monocytes 0.5 thou/uL (0.11-0.59); #Neutrophils 3.8 thou/uL (1.40-6.50); %Basophils 1.1 % (0.0-1.0); %Eosinophils 5.2 % (0.0-10.0); %Monocytes 7.5 % (0.0-10.0); %Neutrophils 52.2 % (42.0-75.0); Mean Corpuscular HGB CONC 33.3 g/dL (32.0-36.0); Mean Corpuscular Hemoglobin 30.6 pg (27.0-31.0); Mean Corpuscular Volume 91.7 fL (78.0-98.0); Mean Platelet Volume 8.3 fL (7.4-10.4); Platelet Count 243 thou/uL (130-400); RBC Distribution Width 12.3 % (11.5-14.5); Red Blood Cell (RBC) Count 4.26 mill/uL (4.70-6.10); White Blood Cell (WBC) Count 7.3 thou/uL (4.8-10.8)
[2018-10-16 06:11] LABS: Anion Gap 10 mmol/L (10-20); BUN (Urea Nitrogen) 13 mg/dL (8.4-25.7); Calc. Creatinine Clearance 92 mL/min (70-130); Calcium 8.8 mg/dL (7.8-10.44); Carbon Dioxide 21 mmol/L (22-29); Chloride 111 mmol/L (98-107); Estimated GFR-MDRD 70; Glucose 138 mg/dL (70-105); Potassium 3.9 mmol/L (3.5-5.1); Sodium 138 mmol/L (136-145)
--- NOTE | 2018-10-16 07:21 | PDOC.PN ---
- Subjective Encounter Start Date: 10/16/18 Encounter Start Time: 07:19 Subjective: walking about 40 ft with walker - Objective Resuscitation Status - Order Detail: 10/13/18 15:05 Resuscitation Status Routine Resuscitation Status: FULL: Full Resuscitation MAR Reviewed: Yes Vital Signs & Weight: Vital Signs (12 hours) Temp Pulse Resp BP Pulse Ox 10/16/18 03:30 98.5 F 67 18 161/94 H 94 L 10/15/18 23:59 97.9 F 67 18 127/81 96 10/15/18 20:50 96 10/15/18 19:27 98.2 F 90 16 128/90 96 Weight Admit Weight 194 lb Weight 194 lb 5 oz Most Recent Monitor Data Heart Rate from ECG 77 NIBP 141/91 NIBP BP-Mean 107 Respiration from ECG 30 SpO2 96 I&O: 10/15/18 10/16/18 10/17/18 06:59 06:59 06:59 Intake Total 2171 1720 Output Total 2360 3000 Balance -189 -1280 Result Diagrams: 10/16/18 05:39 10/16/18 05:39 Phys Exam - Physical Examination Neck: no JVD Respiratory: clear to auscultation bilateral Cardiovascular: RRR, no significant murmur Gastrointestinal: soft, positive bowel sounds Musculoskeletal: no edema spastic hemiplegia on R, still weak on left but improving Dx/Plan (1) Acute CVA (cerebrovascular accident) Code(s): I63.9 - CEREBRAL INFARCTION, UNSPECIFIED Status: Ruled-out (2) Hemiplegia of left nondominant side due to infarction of brain Code(s): I63.9 - CEREBRAL INFARCTION, UNSPECIFIED; G81.94 - HEMIPLEGIA, UNSPECIFIED AFFECTING LEFT NONDOMINANT SIDE Status: Acute (3) CAD (coronary artery disease) Code(s): I25.10 - ATHSCL HEART DISEASE OF [place] CORONARY ARTERY W/O ANG PCTRS Status: Chronic Qualifiers: Coronary Disease-Associated Artery/Lesion type: [place] artery [place] vs. transplanted heart: [place] heart Associated angina: without angina Qualified Code(s): I25.10 - Atherosclerotic heart disease of [place] coronary artery without angina pectoris Comment: stable (4) Dyslipidemia Code(s): E78.5 - HYPERLIPIDEMIA, UNSPECIFIED Status: Chronic Comment: continue statin (5) Hypertension Code(s): I10 - ESSENTIAL (PRIMARY) HYPERTENSION Status: Chronic Qualifiers: Hypertension type: essential hypertension Qualified Code(s): I10 - Essential (primary) hypertension - Plan etiology of recurent L hemiplegia unclear- prolonged TIA, Todds paresis? -: cont asa, plavix. prolactin level if recurrs -: REHAB pending * .
[2018-10-16] MEDS ORDERED: Aspirin 325 mg Enteric Coated Tablet PO SCH (09:00)
[2018-10-16] MEDS ORDERED: Aggrenox 200-25mg CAP PO SCH (09:00)
[2018-10-16] MEDS: Amlodipine 10 MG TAB PO SCH (09:32)
[2018-10-16 11:43] VITALS: TEMP 98
--- NOTE | 2018-10-16 14:00 | DIS ---
DATE OF ADMISSION: 10/13/2018 DATE OF DISCHARGE: 10/16/2018 PRIMARY CARE PROVIDER: Dr. Souleymane Hines. DISPOSITION: Discharged to [facility]. FINAL DIAGNOSES: 1. Left hemiplegia, resolved. 2. Hypertension. 3. Dyslipidemia. 4. History of multiple cerebral infarcts. 5. Right spastic hemiplegia. DISCHARGE MEDICATIONS: 1. Plavix 75 mg a day. 2. Aspirin 325 mg a day. 3. Amlodipine 10 mg a day. 4. Pepcid 20 mg a day. ALLERGIES: NO STATIN PRESCRIBED THE PATIENT STATES HE HAS AN INTOLERANCE OF STATINS. ATORVASTATIN, HYDROCODONE, SULFAMETHOXAZOLE, TRIMETHOPRIM. DIET: Heart healthy. PENDING AT THE TIME OF DISCHARGE: Nothing. CODE STATUS: Full. HOSPITAL COURSE: The patient transferred from [place] [facility] to [facility] with acute left flaccid hemiplegia, received tPA. Within hours, his left side began to improve. It is of interest in May of this year with tPA and resolution. His MRI post tPA was showed no acute abnormality. His CT of his brain revealed old right cerebellar, left parietal infarcts. His laboratory, CBC; white count 8.9, hemoglobin 13.5, platelet count 208,000. He had 2 followups, which were not significantly changed. His comprehensive metabolic profile showed some elevated cholesterol 207, elevated LDL 130, low HDL 27. Basic metabolic profile was within normal limits. He was seen by Neurology, who did not think that the patient had any evidence of a stroke or other vascular abnormality. Because of the consideration of a seizure disorder with a Damion's paralysis, EEG was done, which was normal. The patient is now steadily improving from his left flaccid hemiplegia. He still has his right flaccid hemiplegia. He has had no procedures done. The etiology of his now recurrent x2 left hemiplegia is not clear. I suspect if it recurs, he should not be given tPA again because of the risk. If he has a sudden onset of left hemiplegia, prolactin study should be done immediately for any evidence of stroke. The patient's status is now stable for transfer for further physical therapy, occupational therapy. His case remains confusing, however, he is stable at this time with no obvious treatable or reversible problems apparent at this time. Job ID: [id number]
[2018-10-16 14:33] VITALS: BP 131/86
== END 2018-10-16 16:10 | disposition swing bed (61) | DRG 62 ==
LOC: ERS 13:42 → ERHOLD 14:46 → CCU 16:28 → 2SE 10-14 18:32
PROVIDERS: ADMIT Internal Medicine; ATTEND Internal Medicine
DX: I63.9 Cerebral infarction, unspecified (principal); G81.04 Flaccid hemiplegia affecting left nondominant side; R47.01 Aphasia; I25.10 Atherosclerotic heart disease of native coronary artery without angina pectoris; I10 Essential (primary) hypertension; E78.5 Hyperlipidemia, unspecified; F17.210 Nicotine dependence, cigarettes, uncomplicated; Z88.2 Allergy status to sulfonamides; Z88.8 Allergy status to other drugs, medicaments and biological substances; Z79.02 Long term (current) use of antithrombotics/antiplatelets; Z79.82 Long term (current) use of aspirin; I25.2 Old myocardial infarction; Z86.73 Personal history of transient ischemic attack (TIA), and cerebral infarction without residual deficits; Z95.1 Presence of aortocoronary bypass graft; Z95.5 Presence of coronary angioplasty implant and graft; Z90.5 Acquired absence of kidney
CPT/HCPCS: 36415; 36416; 70450; 70551; 80048; 80061; 85025; 87086; 90471; 90686; 93005; 93010; 95816; 95819; G0008; G8978-GP-CL; G8979-GP-CK; G8987-GO-CL; G8988-GO-CJ; G8996-GN-CI; G8997-GN-CI; J1650; J2997